=== PATIENT | male | born 1970 | race Caucasian/White ===

== ENCOUNTER 2020-05-29 07:30 | Outpatient (RCR) | payer OTHER, SELFPAY | END 2020-06-21 23:59 | disposition home or self-care (01) | LOC: SPT 07:30 | PROVIDERS: PCP Nurse Practitioner Family; Referring Provider Nurse Practitioner Family; Visit Provider Nurse Practitioner Family | DX: M54.5 Low back pain (principal) | CPT/HCPCS: 97110; 97162 ==

== ENCOUNTER → 2021-01-29 11:48 | Outpatient (BNVA) | payer OTHER, SELFPAY | PROVIDERS: PCP Nurse Practitioner Family; Visit Provider Nurse Practitioner Family | DX: Z20.822 Contact with and (suspected) exposure to COVID-19 (principal); J06.9 Acute upper respiratory infection, unspecified | CPT/HCPCS: 87635 ==

== ENCOUNTER 2021-07-01 08:17 | Outpatient (CLI) | payer OTHER, SELFPAY ==
--- NOTE | 2021-07-01 08:40 | XR_ITS ---
WS: [id number] XR lumbar spine 2-3V* [id number] REASON FOR EXAM: BACK PAIN FINDINGS: Mild rotatory scoliosis convex to the left on the AP view. Mild straightening of the normal lordosis of the lumbar spine on the lateral view. No significant vertebral body abnormality. Intervertebral disc spaces are well preserved. XR/XR lumbar spine 2-3V* [id number] IMPRESSION: No significant abnormality of the lumbar spine. No significant interval change is identified comparing to the previous study of 10/15/2019.
== END 2021-07-01 08:18 | disposition home or self-care (01) ==
PROVIDERS: PCP Nurse Practitioner Family; Visit Provider Electrodiagnostic Medicine
DX: M54.16 Radiculopathy, lumbar region (principal); M46.1 Sacroiliitis, not elsewhere classified; M54.32 Sciatica, left side
CPT/HCPCS: 72100

== ENCOUNTER 2022-06-01 06:56 | Day surgery (SDC) | payer OTHER, SELFPAY ==
[2022-05-30 09:36] VITALS: BMI 23.5
[2022-06-01 07:18] VITALS: BP 117/84; PULSE 84; RESP 18; TEMP 36.6; O2SAT 99
[2022-06-01] MEDS: sodium chloride 0.9% 1,000 ML 30 ML IV (07:23)
--- NOTE | 2022-06-01 07:32 | ANES.PREANE2 ---
Pre-Anesthetic Assessment Height/Weight: Height 1.7 m Weight 68.039 kg Temp Pulse Resp BP Pulse Ox O2 Del Method 97.8 F 84 18 117/84 99 06/01/22 07:18 06/01/22 07:18 06/01/22 07:18 06/01/22 07:18 06/01/22 07:18 06/01/22 07:18 Preop Diagnosis: screening Operation Date: 06/01/22 08:30 Proposed Procedures p Colonoscopy 18457,Z12.11(Not Applicable) - Zhen Snell DO Familial anesthetic complications: none Was Beta Criss taken within 24 hours: N/A Was Clonidine taken within 24 hours: N/A Last intake: Intake Last Liquid Date 05/31/22 Last Liquid Time 22:00 Last Solid Date 05/30/22 Last Solid Time 18:00 Social No alcohol and No tobacco Exam alert, oriented x 3, clear to auscultation bilaterally and regular rate & rhythm Airway Submandibular: within normal limits Cervical ROM: within normal limits Mallampati: Class II Dentition: chipped (upper back left side) and full Pulmonary Asthma (childhood seems to have resolved) CV/HEM None reported high BP years ago due to stress but off BP meds for 11 years now None reported Hepatic None reported GI None reported Metabolic Hyperlipidemia Musc/skel Lower Back Pain and Osteoarthritis/DJD Neuropsych None reported Anesthetic Plan ASA status: 2 Anesthesia: MAC Risk of > 500 ml blood loss (7ml/kg in children): No Medications/Allergies Home Medications Medication Instructions Recorded Confirmed Last Taken Type simvastatin 10 mg tablet 10 mg PO DAILY 01/29/21 05/30/22 05/30/22 History Allergies Allergy/AdvReac Type Severity Reaction Status Date / Time Penicillins Allergy unsure Verified 05/30/22 09:34 Current Medications Generic Name Dose Route Start Last Admin Trade Name Freq PRN Reason Stop Dose Admin Sodium Chloride 1,000 mls @ 30 mls/hr 06/01/22 07:15 06/01/22 07:23 Sodium Chloride 0.9% IV 06/02/22 07:14 30 mls/hr .Q24H MILENA Administration Data Anesthesia Cardiac Studies: No Data to Display
--- NOTE | 2022-06-01 08:43 | P.HP_ITS ---
Providers/Chief Complaint Primary Care Provider: Vinh Hutchison NP Chief Complaint: Z12.11 History of Present Illness Morris Ibrahim is a 51 year old male who is here for his first colon cancer screening. He denies any abdominal pain, nausea, emesis, diarrhea, constipation, hematochezia and/or melena. He denies any family history of colon cancer. Medications/Allergies Home Medications Medication Instructions Recorded Confirmed Last Taken Type simvastatin 10 mg tablet 10 mg PO DAILY 01/29/21 05/30/22 05/30/22 History Allergies Allergy/AdvReac Type Severity Reaction Status Date / Time Penicillins Allergy unsure Verified 05/30/22 09:34 Vitals/I&O/Wt Last Vital Signs Temp 97.8 F 06/01/22 07:18 Pulse 84 06/01/22 07:18 Resp 18 06/01/22 07:18 BP 117/84 06/01/22 07:18 Pulse Ox 99 06/01/22 07:18 O2 Del Method 06/01/22 07:18 Weight last 48 hrs Weight 150 lb A&P Assessment and plan (1) Colon cancer screening: Plan Colonoscopy The risks and benefits of the procedure, including bleeding, infection, intestinal perforation requiring surgery, missed lesion were explained to the patient. The patient is understanding of the risks and wishes to proceed. Attestations Medical Necessity Statement*: Home Coding Level of Care Code Acute Video Production Assistant for Chg Fwd Diagnoses Colon cancer screening Z12.11
[2022-06-01 09:08] VITALS: BP 106/57; PULSE 52; RESP 12; TEMP 36.1; O2SAT 100
--- NOTE | 2022-06-01 09:10 | ANE.PACU2 ---
Inpatient post-anesthesia follow up: Airway intact: Yes Vital signs: Temperature 97.8 F Pulse Rate 84 Respiratory Rate 18 Blood Pressure 117/84 Pulse Oximetry 99 Oxygen Delivery Me thod Room Air Oxygen Flow Rate Fraction of Inspir ed Oxygen Hydration adequate: Yes Nausea and vomiting: No Pain level: 1 Mental status: Baseline
[2022-06-01 09:25] VITALS: BP 108/48; PULSE 56; RESP 16; O2SAT 97
--- NOTE | 2022-06-01 13:33 | ANE.PACU2 ---
Inpatient post-anesthesia follow up: Airway intact: Yes Vital signs: Temperature 97 F Pulse Rate 56 Respiratory Rate 16 Blood Pressure 108/48 Pulse Oximetry 97 Oxygen Delivery Me thod Room Air Oxygen Flow Rate Fraction of Inspir ed Oxygen Hydration adequate: Yes Nausea and vomiting: No Pain level: 1 Mental status: Baseline
== END 2022-06-01 09:40 | disposition home or self-care (01) ==
PROVIDERS: PCP Nurse Practitioner Family; Visit Provider Surgery
PROC: 0DJD8ZZ Inspection of Lower Intestinal Tract, Via Natural or Artificial Opening Endoscopic (ICD-10-PCS; CPT 45378; principal; 2022-06-01 08:30)
DX: Z12.11 Encounter for screening for malignant neoplasm of colon (principal); E78.5 Hyperlipidemia, unspecified
CPT/HCPCS: 45385; 88305; J2704; J7030

== ENCOUNTER 2022-08-09 12:22 | Observation (INO) | payer OTHER, SELFPAY ==
[2022-08-09] VITALS (13 sets, daily range): BP systolic 109–149; BP diastolic 50–90; PULSE 54–68; RESP 15–18; TEMP 36.8; O2SAT 96–100; BMI 24.3
[2022-08-09] MEDS: morphine 4 mg/mL SDV 1 mL IVP ×2 (12:48→13:07)
[2022-08-09] MEDS: ondansetron 2 mg/ML SDV 2 mL 4 MG IVP (12:48)
[2022-08-09 13:05] LABS: Basophils % 0.2 %; Eosinophils % 0.2 %; Hematocrit 43.2 % (42.0-52.0); Hemoglobin 14.4 g/dL (11.7-16.6); Lymphocytes # 2.2 10^3/uL (0.8-4.8); Lymphocytes % 17.9 %; Mean Corpuscular HGB Conc 33.3 g/dL (30.0-36.0); Mean Corpuscular Hemoglobin 31.2 pg (28.0-34.0); Mean Corpuscular Volume 93.7 fl (80-94); Mean Platelet Volume 10.4 fL (7.4-10.4); Monocytes # 0.7 10^3/uL (0.2-0.9); Monocytes % 5.7 %; Neutrophils # 9.38 10^3/uL (1.8-7.7); Neutrophils % 75.7 %; Nucleated Red Blood Cells % 0 %; Platelet Count 258 10^3/cmm (130-400); Red Blood Count 4.61 10^6/uL (4.1-5.3); Red Cell Distribution Width 11.9 % (12.1-15.1); White Blood Count 12.4 10^3/uL (4.0-10.0)
[2022-08-09] MEDS: promethazine 25 mg/mL SDV 1 mL IM (13:14)
[2022-08-09 13:20] LABS: Alanine Aminotransferase 26 U/L (0-41); Albumin Level 4.5 g/dL (3.5-5.2); Alkaline Phosphatase 42 U/L (40-130); Aspartate Amino Transferase 19 U/L (0-40); Blood Urea Nitrogen 16 mg/dL (6-20); Calcium 9.6 mg/dL (8.5-10.5); Carbon Dioxide 26 mmol/L (22-29); Chloride 104 mmol/L (98-107); Globulin 2.6 g/dL (1.3-4.6); Glomerular Filtration Rate 78.8 mL/min (90-130); Glucose 147 mg/dL (65-115); Osmolality Calculated 300 mOsm/kg (285-295); Sodium 143 mmol/L (136-145); Total Bilirubin 0.5 mg/dL (0.15-1.2); Total Protein 7.1 g/dL (6.6-8.7)
--- NOTE | 2022-08-09 13:35 | CT_ITS ---
WS: [id number] CT scan of the abdomen and pelvis without Oral and IV contrast. Additional two-dimensional coronal an d sagittal reconstruction was performed. 08/09/2022 Clinical Data: flank pain Comparison: None. DLP: 386.[address] scans at [facility] use at least one of these dose optimization techniques: automated e xposure control; mA and/or kV adjustment per patient size (includes targeted exams where dose is matc hed to clinical indication); or iterative reconstruction. Findings: The lower lungs show no nodules, masses or effusions. The liver, gallbladder, spleen, adrenal glands and pancreas are normal. The right kidney shows no cysts, masses, hydronephrosis or renal calculi. The left kidney shows mild hydronephrosis but no intrarenal calculi. There is a proximal left 0.3 cm ureteral calculus. The abdominal aorta is normal in size. No appendicitis or diverticulitis is seen. The stomach, small bowel and colon are not remarkable. The bladder is unremarkable. No inguinal hernia is seen. The bones of the lower thorax, lumbar spine, pelvis, and hips are normal. CT/CT kidney stone [id number] Impression: Proximal left 0.3 cm ureteral calculus.
[2022-08-09] MEDS: HYDROmorphone 1 mg/mL INJ 1 mL 0.5 MG IVP ×2 (13:41→15:09)
--- NOTE | 2022-08-09 14:08 | ED_ITS ---
HPI - Male Genitourinary General: Chief complaint: Abdominal Pain Stated complaint: left low back/side pain Time Seen by Provider: 08/09/22 12:25 Source: patient Mode of arrival: ambulatory History of Present Illness: 52-year-old male presents emergency room with left flank pain. He said pain intermittently been really mild the last couple of days suddenly this morning began to have severe pain that he rates as 10 out of 10. Patient is extremely uncomfortable and severe pain on arrival here. He noticed some dark urine associated with the intermittent flank pain couple of days ago but has not seen any jose hematuria no history of nephrolithiasis. Onset (ago): day(s) Duration: progressively worsening Location: left flank Radiation: left inguinal region Severity: severe Quality: sharp Relieving factors: none Exacerbating factors: none Associated symptoms: Reports nausea; Deny discharge, dysuria, fevers/chills, hematuria, rash, swelling, urinary incontinence, urinary retention, mass or vomiting Review of Systems Const: Denies: fever(s), chills, body aches, change in appetite, fatigue or malaise ENMT: Denies: throat pain, ear or mastoid pain, nasal discharge or nasal congestion Card: Denies: chest pain, edema, dyspnea on exertion or orthopnea Resp: Denies: dyspnea, productive cough or non-productive cough GI: Reports: nausea; Denies: vomiting : Denies: dysuria, urinary incontinence or hematuria Skin/Breast: Denies: rash or pruritus [facility] ED PFSH: Medical History (Updated 08/10/22 @ 06:02 by Malachi Hernandez DO) Chronic low back pain High cholesterol Tubular adenoma of colon Surgical History (Updated 08/09/22 @ 18:05 by Kev Gaviria MD) Status post colonoscopy Social History Smoking and tobacco status: never smoked Alcohol intake: never Physical Exam Const: COMMON NORMALS: no acute distress GENERAL APPEARANCE: cooperative and comfortable ORIENTATION/CONSCIOUSNESS: Yes awake, Yes oriented to person, Yes oriented to place and Yes oriented to time HENMT: COMMON NORMALS: normocephalic, atraumatic and hearing grossly normal bilaterally HEAD & SCALP: normocephalic and atraumatic Resp: COMMON NORMALS: normal respiratory effort, No retractions, No use of accessory muscles and clear to auscultation bilaterally AUSCULTATION: clear to auscultation bilaterally Cardio: COMMON NORMALS: regular rate, regular rhythm and No murmurs present (Cardio) RATE: regular rate RHYTHM: regular rhythm GI: COMMON NORMALS: Soft to palpation and No hepatosplenomegaly present AUSCULTATION: Yes normoactive bowel sounds PALPATION: Yes Soft to palpation, No Tenderness to palpation present (GI), No Guarding due to palpation present (GI) and Yes No hepatosplenomegaly present : BLADDER/KIDNEY EXAM: Yes CVA tenderness on the left Back/Pelvis: GENERAL BACK: Yes CVA tenderness Extremity: COMMON NORMALS: normal to inspection, capillary refill normal, no clubbing, cyanosis or edema, no calf tenderness and no pedal edema Neuro: SENSORIUM/ORIENTATION: Yes oriented to person, Yes oriented to place and Yes oriented to time Skin: COMMON NORMALS: no rashes or lesions noted GENERAL SKIN EXAM: no rashes or lesions noted Course Vital Signs: Vital signs: Vital Signs Temperature 97.9 F 08/10/22 04:00 Pulse Rate 53 L 08/10/22 04:00 Respiratory Rate 16 08/10/22 04:00 Blood Pressure 96/56 08/10/22 04:00 Pulse Oximetry 96 08/10/22 04:00 Oxygen Delivery Me thod 08/10/22 04:00 MDM - Male Medical Decision Making 3 mm left nephrolithiasis mid ureter. Patient's pain very difficult to control. Discussed with Dr. Gaviria he recommended going ahead and giving Toradol at this point. Patient has received 8 mg of morphine and 3 mg Dilaudid pain is still minimally controlled placed on observation for Dr. Gaviria. He has been to the emergency room and seen the patient Medical Records I reviewed the patient's medical records. Lab Data I reviewed the patient's lab results. 08/09/22 12:42 08/09/22 12:42 Radiology Impressions Abdomen/Pelvis CT 08/09/22 13:35 Impression: Proximal left 0.3 cm ureteral calculus. Laboratory Results WBC 12.4 10^3/uL (4.0-10.0) H 08/09/22 12:42 RBC 4.61 10^6/uL (4.1-5.3) 08/09/22 12:42 Hgb 14.4 g/dL (11.7-16.6) 08/09/22 12:42 Hct 43.2 % (42.0-52.0) 08/09/22 12:42 MCV 93.7 fl (80-94) 08/09/22 12:42 MCH 31.2 pg (28.0-34.0) 08/09/22 12:42 MCHC 33.3 g/dL (30.0-36.0) 08/09/22 12:42 RDW 11.9 % (12.1-15.1) L 08/09/22 12:42 Plt Count 258 10^3/cmm (130-400) 08/09/22 12:42 MPV 10.4 fL (7.4-10.4) 08/09/22 12:42 Neut % (Auto) 75.7 % 08/09/22 12:42 Lymph % (Auto) 17.9 % 08/09/22 12:42 [place] % (Auto) 5.7 % 08/09/22 12:42 Eos % (Auto) 0.2 % 08/09/22 12:42 Baso % (Auto) 0.2 % 08/09/22 12:42 Neut # (Auto) 9.38 10^3/uL (1.8-7.7) H 08/09/22 12:42 Lymph # (Auto) 2.2 10^3/uL (0.8-4.8) 08/09/22 12:42 [place] # (Auto) 0.7 10^3/uL (0.2-0.9) 08/09/22 12:42 Eos # (Auto) 0.0 10^3/uL (0.0-0.8) 08/09/22 12:42 Baso # (Auto) 0.0 10^3/uL (0.0-0.1) 08/09/22 12:42 Nucleated RBC % (auto) 0 % 08/09/22 12:42 Nucleated RBCs # 0.0 /100WBC 08/09/22 12:42 Sodium 143 mmol/L (136-145) 08/09/22 12:42 Potassium 4.0 mmol/L (3.5-5.1) 08/09/22 12:42 Chloride 104 mmol/L (98-107) 08/09/22 12:42 Carbon Dioxide 26 mmol/L (22-29) 08/09/22 12:42 Anion Gap 17.0 (5-19) 08/09/22 12:42 BUN 16 mg/dL (6-20) 08/09/22 12:42 Creatinine 1.0 mg/dL (0.7-1.2) 08/09/22 12:42 GFR Calculation 78.8 mL/min (90-130) L 08/09/22 12:42 Glucose 147 mg/dL (65-115) H 08/09/22 12:42 Calculated Osmolality 300 mOsm/kg (285-295) H 08/09/22 12:42 Calcium 9.6 mg/dL (8.5-10.5) 08/09/22 12:42 Total Bilirubin 0.5 mg/dL (0.15-1.2) 08/09/22 12:42 AST 19 U/L (0-40) 08/09/22 12:42 ALT 26 U/L (0-41) 08/09/22 12:42 Alkaline Phosphatase 42 U/L (40-130) 08/09/22 12:42 Total Protein 7.1 g/dL (6.6-8.7) 08/09/22 12:42 Albumin 4.5 g/dL (3.5-5.2) 08/09/22 12:42 Globulin 2.6 g/dL (1.3-4.6) 08/09/22 12:42 Urine Color Dark yellow (Yellow) 08/09/22 15:27 Urine Appearance Cloudy (CLEAR) A 08/09/22 15:27 Urine pH 6 (5-7) 08/09/22 15:27 Ur Specific [place] 1.025 (1.005-1.030) 08/09/22 15:27 Urine Protein Trace (Negative) 08/09/22 15:27 Urine Glucose (UA) Norm (Normal) 08/09/22 15:27 Urine Ketones 1+ (Negative) H 08/09/22 15:27 Urine Blood 3+ (Negative) H 08/09/22 15:27 Urine Nitrate Negative (Negative) 08/09/22 15:27 Urine Bilirubin Neg (Negative) 08/09/22 15:27 Urine Urobilinogen Neg mg/dL (Negative) 08/09/22 15:27 Ur Leukocyte Esterase Negative (Negative) 08/09/22 15:27 Urine RBC 50-80 /hpf (0-2) H 08/09/22 15:27 Urine WBC None /hpf (0-5) 08/09/22 15:27 Ur Squamous Epith Cells None /hpf (0-5) 08/09/22 15:27 Amorphous Sediment Not Reportable 08/09/22 15:27 Urine Bacteria Trace /hpf (NONE) 08/09/22 15:27 Discharge Plan Discharge Patient Disposition: Admitted As Inpatient Admit Provider: Kev Gaviria Clinical Impression: Left ureteral calculus, Hydronephrosis, left Condition: Stable Coding Level of Care Code ED Ict Sales Representative for Mirta Luciano
[2022-08-09 16:15] LABS: Blood Urine 3+ (Negative); Glucose Urine UA Norm (Normal); Ketones Urine 1+ (Negative); Protein Urine Trace (Negative); Specific Gravity, Urine 1.025 (1.005-1.030); Urine Appearance Cloudy (CLEAR); Urine Color Dark Yellow (Yellow); pH Urine 6 (5-7)
[2022-08-09 16:16] LABS: Add Urine Culture? Yes; Add Urine Microscopic? YES; Bacteria Urine TRACE /hpf; Bilirubin Urine Neg (Negative); Leukocyte Esterase Urine Negative (Negative); Nitrate Urine Negative (Negative); RBC Urine 50-80 /hpf (0-2); Urobilinogen Urine Neg (Negative)
[2022-08-09] MEDS: ketorolac 30 mg/mL INJ IVP (16:32)
--- NOTE | 2022-08-09 17:11 | P.HP_ITS ---
Providers/Chief Complaint Admitting Physician: Everette Primary Care Provider: Shannon Patrick Chief Complaint: Left ureteral stone History of Present Illness Morris is a 52 year old male admitted through ED for complaint of refractory, severe LEFT ureteral colic. CT revealed a 6mm obstructing midureteral stone. Workup: * WBC: 12.4 * Cr: 1.0 * LFTs: nl Aggressive pain treatment failed to adequately control the pain enough for patient to be managed as an outpatient. Admitted for pain control and further eval and treatment. KUB in AM. Review of Systems Const: Denies: fever(s) or chills Card: Denies: chest pain or palpitations Resp: Denies: dyspnea or productive cough GI: Reports: abdominal pain and nausea; Denies: vomiting or change in bowel habits : Reports: flank pain Musc: Reports: back pain (Some low chronic back pain) Skin/Breast: Denies: jaundice Neuro: Denies: confusion or Slurred speech present Psych: Denies: anxiety or depression Endo: Denies: flushing Bruce/Lymph: Denies: easy bruising or easy bleeding All/Imm: Denies: urticaria or acute wheezing Medications/Allergies Home Medications Medication Instructions Recorded Confirmed Last Taken Type simvastatin 10 mg tablet 10 mg PO BEDTIME 01/29/21 08/09/22 05/30/22 History cetirizine 10 mg tablet (Zyrtec) 10 mg PO BEDTIME 08/09/22 08/09/22 Unknown History multivitamin 1 tab PO QAM 08/09/22 08/09/22 Unknown History tramadol 50 mg tablet 50 mg PO Q8H PRN Back Pain 08/09/22 08/09/22 Unknown History Allergies Allergy/AdvReac Type Severity Reaction Status Date / Time ciprofloxacin [From Cipro] Allergy Unknown Verified 08/09/22 12:29 Penicillins Allergy unsure Verified 08/09/22 12:29 PFSH Acute PFSH: Medical History (Updated 08/09/22 @ 18:05 by Kev Gaviria MD) Chronic low back pain High cholesterol Tubular adenoma of colon Surgical History (Updated 08/09/22 @ 18:05 by Kev Gaviria MD) Status post colonoscopy Social History Smoking and tobacco status: never smoked Alcohol intake: never Vitals/I&O/Wt Last Vital Signs Temp 98.3 F 08/09/22 12:24 Pulse 60 08/09/22 16:35 Resp 16 08/09/22 14:37 BP 144/90 08/09/22 16:35 Pulse Ox 96 08/09/22 16:35 O2 Del Method 08/09/22 16:35 Weight last 48 hrs Weight 155 lb Physical Exam Const: COMMON NORMALS: no acute distress (Much improved over how he was very short time before), alert and well nourished GENERAL APPEARANCE: well kempt and well developed ORIENTATION/CONSCIOUSNESS: not confused HENMT: COMMON NORMALS: normocephalic HEAD & SCALP: normal to inspection and normocephalic Eye: COMMON NORMALS: conjunctivae normal and no scleral icterus CONJUNCTIVA: Yes conjunctivae normal Neck/C-Spine: GENERAL: Yes normal visual inspection Resp: COMMON NORMALS: normal respiratory effort EFFORT & INSPECTION: Yes able to speak in complete sentences, No labored and No Actively coughing Cardio: COMMON NORMALS: negative for regular rate and negative for regular rhythm GI: OTHER: Soft Extremity: COMMON NORMALS: no clubbing, cyanosis or edema OTHER: Normal range of motion Neuro: COMMON NORMALS: no focal motor deficits SENSORIUM/ORIENTATION: Yes alert Psych: COMMON NORMALS: mental status grossly normal APPEARANCE: Yes grossly normal and Yes well kempt ATTITUDE: Yes calm and Yes engaged Skin: COMMON NORMALS: no rashes or lesions noted and no jaundice GENERAL SKIN EXAM: no rashes or lesions noted Data 08/09/22 12:42 08/09/22 12:42 A&P Assessment and plan (1) Left ureteral calculus: 6 mm LEFT ureteral stone with refractory pain. Observe overnight. Serial KUBs. Intervention versus further conservative management on outpatient basis depending upon how he does. (2) Hydronephrosis, left: Secondary to mid ureteral stone on the left. Plan see above. Attestations Medical Necessity Statement*: Despite high doses of narcotics, could not get his pain well enough controlled to be discharged. Coding Level of Care Code Acute Code for [facility] Fwd Diagnoses Left ureteral calculus N20.1 Hydronephrosis, left N13.30
[2022-08-09] MEDS: sodium chloride 0.9% 1,000 ML 125 ML IV (20:05)
[2022-08-09] MEDS: ketorolac 30 mg/mL INJ 15 MG IVP (20:06)
[2022-08-09] MEDS: HYDROmorphone 1 mg/mL INJ 1 mL IVP (20:06)
[2022-08-09] MEDS: tamsulosin 0.4 mg Capsule PO (20:07)
[2022-08-10] VITALS: BP 110/63; PULSE 53; RESP 16; TEMP 36.8; O2SAT 95
[2022-08-10 04:00] VITALS: BP 96/56; PULSE 53; RESP 16; TEMP 36.6; O2SAT 96
[2022-08-10] MEDS: sodium chloride 0.9% 1,000 ML 125 ML IV (04:10)
--- NOTE | 2022-08-10 06:00 | XR_ITS ---
WS: [id number] EXAMINATION: XR KUB [id number] REASON FOR EXAM: F/U LEFT ureteral calculus diagnosed 08/09 COMPARISON: None available. ORDER DATE: 08/10/2022 6:20 AM FINDINGS: There is a nonspecific colonic gas pattern with scattered fecal content and gas. There is no sign of significant small bowel dilation. There is a small calcification superimposing the left transverse p rocess of L3 and XR/XR KUB [id number] IMPRESSION: Possible upper left ureteral calculus.
--- NOTE | 2022-08-10 06:11 | PC.NURSE ---
Contacted radiology regarding incomplete orders for KUB x 3 attempts. Spoke w/Brady who states she will talk to freya Alvarado to see if he already got it.
--- NOTE | 2022-08-10 06:51 | PC.NURSE ---
Dr. Gaviria here to speak w/pt regarding status of kidney stone and pt's wishes regarding stent placement or going home to try to pass the stone. Pt to discharge home this am.
--- NOTE | 2022-08-10 07:06 | PM.DCS ---
Discharge Providers Date of Admission: 08/09/22 19:04 Date of Discharge: August 10, 2022 Attending Provider at Admission: Kev Gaviria MD Attending Provider at Discharge: Kev Gaviria MD Primary Care Provider: Shannon Patrick Diagnoses at Discharge Discharge Diagnosis (1) Left ureteral calculus: Status: Acute (2) Hydronephrosis, left: Status: Acute Reason for Visit Reason for Visit: Left ureteral stone Brief History: Admitted through the emergency department for refractory pain associated with a 4 x 6 mm left mid ureteral stone with obstruction. No evidence of infection. Despite aggressive attempts at management of the pain in the emergency department it was not adequate for discharge home on oral medication and for that reason he was admitted overnight for further observation possible intervention. Hospital Course Hospital Course He did very well overnight. His pain did not come back in the ferocity that it had been experienced in the emergency department. He was discharged on the morning of hospital day #2. KUB showed the stone had not progressed. They wanted to see if he could give it a chance to pass spontaneously. Discharged in stable condition Physical Exam Narrative: Alert oriented no acute distress. Unlabored respiration with no audible wheezes Good range of motion of extremities Back to baseline. Discharge Data Studies Completed and Pending Completed Studies During Hospitalization Category Date Time Status [place] kidney stone [id number] Stat Cat Scan 08/09/22 13:35 Completed Pending at discharge Category Date Time Status XR KUB [id number] Routine Exams 08/10/22 06:00 Taken Urine Culture Stat Lab 08/09/22 15:27 Received Radiology Impressions Abdomen/Pelvis CT 08/09/22 13:35 Impression: Proximal left 0.3 cm ureteral calculus. Laboratory Results WBC 12.4 10^3/uL (4.0-10.0) H 08/09/22 12:42 RBC 4.61 10^6/uL (4.1-5.3) 08/09/22 12:42 Hgb 14.4 g/dL (11.7-16.6) 08/09/22 12:42 Hct 43.2 % (42.0-52.0) 08/09/22 12:42 MCV 93.7 fl (80-94) 08/09/22 12:42 MCH 31.2 pg (28.0-34.0) 08/09/22 12:42 MCHC 33.3 g/dL (30.0-36.0) 08/09/22 12:42 RDW 11.9 % (12.1-15.1) L 08/09/22 12:42 Plt Count 258 10^3/cmm (130-400) 08/09/22 12:42 MPV 10.4 fL (7.4-10.4) 08/09/22 12:42 Neut % (Auto) 75.7 % 08/09/22 12:42 Lymph % (Auto) 17.9 % 08/09/22 12:42 [place] % (Auto) 5.7 % 08/09/22 12:42 Eos % (Auto) 0.2 % 08/09/22 12:42 Baso % (Auto) 0.2 % 08/09/22 12:42 Neut # (Auto) 9.38 10^3/uL (1.8-7.7) H 08/09/22 12:42 Lymph # (Auto) 2.2 10^3/uL (0.8-4.8) 08/09/22 12:42 [place] # (Auto) 0.7 10^3/uL (0.2-0.9) 08/09/22 12:42 Eos # (Auto) 0.0 10^3/uL (0.0-0.8) 08/09/22 12:42 Baso # (Auto) 0.0 10^3/uL (0.0-0.1) 08/09/22 12:42 Nucleated RBC % (auto) 0 % 08/09/22 12:42 Nucleated RBCs # 0.0 /100WBC 08/09/22 12:42 Sodium 143 mmol/L (136-145) 08/09/22 12:42 Potassium 4.0 mmol/L (3.5-5.1) 08/09/22 12:42 Chloride 104 mmol/L (98-107) 08/09/22 12:42 Carbon Dioxide 26 mmol/L (22-29) 08/09/22 12:42 Anion Gap 17.0 (5-19) 08/09/22 12:42 BUN 16 mg/dL (6-20) 08/09/22 12:42 Creatinine 1.0 mg/dL (0.7-1.2) 08/09/22 12:42 GFR Calculation 78.8 mL/min (90-130) L 08/09/22 12:42 Glucose 147 mg/dL (65-115) H 08/09/22 12:42 Calculated Osmolality 300 mOsm/kg (285-295) H 08/09/22 12:42 Calcium 9.6 mg/dL (8.5-10.5) 08/09/22 12:42 Total Bilirubin 0.5 mg/dL (0.15-1.2) 08/09/22 12:42 AST 19 U/L (0-40) 08/09/22 12:42 ALT 26 U/L (0-41) 08/09/22 12:42 Alkaline Phosphatase 42 U/L (40-130) 08/09/22 12:42 Total Protein 7.1 g/dL (6.6-8.7) 08/09/22 12:42 Albumin 4.5 g/dL (3.5-5.2) 08/09/22 12:42 Globulin 2.6 g/dL (1.3-4.6) 08/09/22 12:42 Urine Color Dark yellow (Yellow) 08/09/22 15:27 Urine Appearance Cloudy (CLEAR) A 08/09/22 15:27 Urine pH 6 (5-7) 08/09/22 15:27 Ur Specific [place] 1.025 (1.005-1.030) 08/09/22 15:27 Urine Protein Trace (Negative) 08/09/22 15:27 Urine Glucose (UA) Norm (Normal) 08/09/22 15:27 Urine Ketones 1+ (Negative) H 08/09/22 15:27 Urine Blood 3+ (Negative) H 08/09/22 15:27 Urine Nitrate Negative (Negative) 08/09/22 15:27 Urine Bilirubin Neg (Negative) 08/09/22 15:27 Urine Urobilinogen Neg mg/dL (Negative) 08/09/22 15:27 Ur Leukocyte Esterase Negative (Negative) 08/09/22 15:27 Urine RBC 50-80 /hpf (0-2) H 08/09/22 15:27 Urine WBC None /hpf (0-5) 08/09/22 15:27 Ur Squamous Epith Cells None /hpf (0-5) 08/09/22 15:27 Amorphous Sediment Not Reportable 08/09/22 15:27 Urine Bacteria Trace /hpf (NONE) 08/09/22 15:27 Vitals Last Vital Signs Temp 97.9 F 08/10/22 04:00 Pulse 53 L 08/10/22 04:00 Resp 16 08/10/22 04:00 BP 96/56 08/10/22 04:00 Pulse Ox 96 08/10/22 04:00 O2 Del Method 08/10/22 04:00 Discharge Plan Discharge Patient Disposition: Home Condition: Stable Prescriptions: New tamsulosin 0.4 mg capsule 0.4 mg PO DAILY Qty: 30 5RF Percocet 5-325 mg tablet 1 - 2 tab PO Q6H Qty: 18 0RF ondansetron HCl 4 mg tablet 4 mg PO Q8H 4 Days Qty: 10 1RF Continued simvastatin 10 mg tablet 10 mg PO BEDTIME multivitamin Tablet 1 tab PO QAM Zyrtec 10 mg Tablet 10 mg PO BEDTIME tramadol 50 mg Tablet 50 mg PO Q8H PRN (Reason: Back Pain) Discharge Orders: Discharge Order (Routine); Ordered 08/10/22 Ordered By: Kev Gaviria Referrals: Shannon Patrick FNP [Primary Care Provider] - Kev Gaviria MD [Physician] - 1 week (KUB first) Discharge Diet: Regular Discharge Activity: Increase activity as tolerated Patient Instructions: Opioid Safety Activity Restrictions/Additional Instructions: 1. Please give us a call tomorrow at [phone] let us know how you are doing 2. We have the opportunity for shockwave lithotripsy to the stone on Monday the . That is certainly not the only option. Hopefully you can pass the stone. We would need to make some plans for that though as soon as possible if you think that you are leaning more toward that treatment. 3. We will plan for follow-up in about a week with an x-ray to see if there is any progression of the stone 4. Please strain all voids 5. Use your pain medicine as needed. Discharge Attestations Time Spent in Discharge Care*: less than 30 min Quality Metrics Clinical Quality Measures [ No reported AMI, CVA or VTE this stay] Coding Level of Care Code Acute Code for [facility] Fwd Diagnoses Left ureteral calculus N20.1 Hydronephrosis, left N13.30
[2022-08-10 07:48] VITALS: BP 118/71; PULSE 56; RESP 15; TEMP 36.3; O2SAT 96
[2022-08-10] MEDS: ketorolac 30 mg/mL INJ 15 MG IVP (07:53)
== END 2022-08-10 09:22 | disposition home or self-care (01) ==
LOC: ER 18:56 → MEDSURG 19:05
PROVIDERS: Admitting Provider Urology; Emergency Provider Family Medicine; PCP Nurse Practitioner Family; Visit Provider Urology
DX: N20.1 Calculus of ureter (principal); N13.30 Unspecified hydronephrosis
CPT/HCPCS: 74018; 74176; 80053; 81001; 85025; 87086; 96372; 96374; 96375; 96376; 99285; G0378; J1170; J1885; J2270; J2405; J2550; J7030

== ENCOUNTER 2022-08-10 21:51 | Observation (INO) | payer OTHER, SELFPAY ==
[2022-08-10] VITALS (7 sets, daily range): BP systolic 126–169; BP diastolic 71–89; PULSE 64–70; RESP 16–18; TEMP 36.8–37.4; O2SAT 91–100; BMI 24.3
--- NOTE | 2022-08-10 22:02 | XRR_ITS ---
PROCEDURE INFORMATION: Exam: XR Abdomen Exam date and time: 08/10/2022 10:15 PM Age: 52 years old Clinical indication: Other: Left flank pain radiating towards RT flank; Additional info: Kidney stone TECHNIQUE: Imaging protocol: Radiologic exam of the abdomen. Views: Frontal supine view of the abdomen. 1 View. COMPARISON: CT kidney stone [id number] 08/09/2022 1:55 PM FINDINGS: Gastrointestinal tract: Moderate colonic stool burden. No bowel obstruction or pneumatosis. Organs: Assessment of urinary calculus disease is limited due to obscuration by abdominal content. If there is a strong clinical concern, additional imaging such as CT may also be considered. Most recent CT exam demonstrated proximal left ureteral calculus measuring 3 mm which may be obscured on this exam. Bones/joints: Slightly prominent cortical bumps at the superolateral femoral head neck junctions, right greater than left. Findings may be related to chronic femoroacetabular impingement and clinical correlation is needed. Other findings: Single supine views submitted. The most superior aspect is not included. XR/XR KUB [id number] IMPRESSION: No acute findings. Other nonacute findings as above. Somewhat limited assessment of urinary tract calculi due to stool material.
--- NOTE | 2022-08-10 22:03 | ED_ITS ---
HPI - Back Pain/Injury General: Chief Complaint: Back Pain/Injury Stated Complaint: left flank pain Time Seen by Provider: 08/10/22 21:53 Source: patient Mode of arrival: ambulatory Limitations: no limitations History of Present Illness: 52-year-old male who was admitted yesterday for a kidney stone he was originally going to have a stent placed beside he want to try to pass it on his own was discharged he states he had worsening pain tonight states the pain is sharp in nature rates it a 9 out of 10 at this time he wants to be readmitted he has had some nausea denies any vomiting. Associated symptoms: Reports nausea; Deny chills or fever(s) Review of Systems Const: Denies: fever(s), chills, body aches or change in appetite Eyes: Denies: blurry vision or eye discomfort ENMT: Denies: throat pain or dental pain Card: Denies: chest pain Resp: Denies: dyspnea GI: Reports: nausea : Reports: flank pain Musc: Denies: neck pain or back pain Skin/Breast: Denies: rash Neuro: Denies: headache(s) Psych: Denies: depression Bruce/Lymph: Denies: easy bruising All/Imm: Denies: urticaria PFSH ED PFSH: Medical History Chronic low back pain High cholesterol Tubular adenoma of colon Surgical History (Updated 08/09/22 @ 18:05 by Kev Gaviria MD) Status post colonoscopy Social History Smoking and tobacco status: never smoked Alcohol intake: never Physical Exam Const: COMMON NORMALS: patient oriented x3 HENMT: COMMON NORMALS: normocephalic and atraumatic HEAD & SCALP: normocephalic and atraumatic Eye: COMMON NORMALS: Equal, round and reactive pupils present and EOMs intact bilaterally PUPIL: Yes Equal, round and reactive pupils present Neck/C-Spine: COMMON NORMALS: full ROM and supple Chest: COMMONS NORMALS: normal inspection of the chest and normal palpation of entire chest wall Resp: COMMON NORMALS: normal respiratory effort, No retractions, No use of accessory muscles and clear to auscultation bilaterally AUSCULTATION: clear to auscultation bilaterally Cardio: COMMON NORMALS: regular rate, regular rhythm and No murmurs present (Cardio) RATE: regular rate RHYTHM: regular rhythm GI: COMMON NORMALS: Normal to inspection, nondistended, normoactive bowel sounds present, Soft to palpation, non-tender and no masses PALPATION: Yes Soft to palpation Extremity: COMMON NORMALS: normal to inspection and full ROM Neuro: COMMON NORMALS: patient oriented x3, moves all extremities and no focal motor deficits Psych: COMMON NORMALS: mental status grossly normal, Normal thought process present and cooperative THOUGHT PROCESS: Normal thought process present Skin: COMMON NORMALS: no rashes or lesions noted and no wounds GENERAL SKIN EXAM: no rashes or lesions noted Course Vital Signs: Vital signs: Vital Signs Temperature 98.2 F 08/10/22 21:54 Pulse Rate 65 08/10/22 22:24 Respiratory Rate 16 08/10/22 22:24 Blood Pressure 169/89 08/10/22 22:24 Pulse Oximetry 100 08/10/22 22:24 Oxygen Delivery Me thod 08/10/22 21:54 MDM - Back Pain/Injury Medical Decision Making Patient presents here with flank pain for likely kidney stone on spoke to Dr. Gaviria urology will admit at this time he has been stable here. Labs 08/10/22 22:22 08/10/22 22:22 Laboratory Results WBC 11.6 10^3/uL (4.0-10.0) H 08/10/22 22:22 RBC 4.44 10^6/uL (4.1-5.3) 08/10/22 22:22 Hgb 13.9 g/dL (11.7-16.6) 08/10/22 22: Hct 41.1 % (42.0-52.0) L 08/10/22 22: MCV 92.6 fl (80-94) 08/10/22 22: MCH 31.3 pg (28.0-34.0) 08/10/22 22: MCHC 33.8 g/dL (30.0-36.0) 08/10/22 22: RDW 11.8 % (12.1-15.1) L 08/10/22 22: Plt Count 202 10^3/cmm (130-400) 08/10/22 22:22 MPV 9.9 fL (7.4-10.4) 08/10/22 22: Neut % (Auto) 67.3 % 08/10/22 22: Lymph % (Auto) 22.6 % 08/10/22 22: [place] % (Auto) 8.5 % 08/10/22 22: Eos % (Auto) 1.2 % 08/10/22 22: Baso % (Auto) 0.2 % 08/10/22 22: Neut # (Auto) 7.81 10^3/uL (1.8-7.7) H 08/10/22 22: Lymph # (Auto) 2.6 10^3/uL (0.8-4.8) 08/10/22 22: [place] # (Auto) 1.0 10^3/uL (0.2-0.9) H 08/10/22 22: Eos # (Auto) 0.1 10^3/uL (0.0-0.8) 08/10/22 22: Baso # (Auto) 0.0 10^3/uL (0.0-0.1) 08/10/22 22: Nucleated RBC % (auto) 0 % 08/10/22: Nucleated RBCs # 0.0 /100WBC 08/10/22 22: Sodium 146 mmol/L (136-145) H 08/10/22 22: Potassium 3.8 mmol/L (3.5-5.1) 08/10/22 22: Chloride 107 mmol/L (98-107) 08/10/22 22: Carbon Dioxide 29 mmol/L (22-29) 08/10/22 22: Anion Gap 13.8 (5-19) 08/10/22 22: BUN 16 mg/dL (6-20) 08/10/22 22: Creatinine 1.6 mg/dL (0.7-1.2) H 08/10/22 22: GFR Calculation 45.8 mL/min (90-130) L 08/10/22 22: Glucose 98 mg/dL (65-115) 08/10/22 22: Calculated Osmolality 303 mOsm/kg (285-295) H 08/10/22 22: Calcium 9.1 mg/dL (8.5-10.5) 08/10/22 22: Total Bilirubin 0.6 mg/dL (0.15-1.2) 08/10/22 22: AST 32 U/L (0-40) 08/10/22 22: ALT 23 U/L (0-41) 08/10/22 22: Alkaline Phosphatase 45 U/L (40-130) 08/10/22 22: Total Protein 6.5 g/dL (6.6-8.7) L 08/10/22 22: Albumin 4.1 g/dL (3.5-5.2) 08/10/22 22: Globulin 2.4 g/dL (1.3-4.6) 08/10/22: Lipase 26 U/L (13-60) 08/10/22 22:22 Discharge Plan Discharge Patient Disposition: Admitted As Inpatient Admit Provider: Kev Gaviria Clinical Impression: Left ureteral calculus Condition: Stable Coding Level of Care Code ED Shellfish Manager for Mirta Luciano
[2022-08-10] MEDS: HYDROmorphone 1 mg/mL INJ 1 mL 0.5 MG IVP (22:21)
[2022-08-10] MEDS: ondansetron 2 mg/ML SDV 2 mL 4 MG IVP (22:21)
[2022-08-10 22:28] LABS: Basophils % 0.2 %; Eosinophils # 0.1 10^3/uL (0.0-0.8); Eosinophils % 1.2 %; Hematocrit 41.1 % (42.0-52.0); Hemoglobin 13.9 g/dL (11.7-16.6); Lymphocytes # 2.6 10^3/uL (0.8-4.8); Lymphocytes % 22.6 %; Mean Corpuscular HGB Conc 33.8 g/dL (30.0-36.0); Mean Corpuscular Hemoglobin 31.3 pg (28.0-34.0); Mean Corpuscular Volume 92.6 fl (80-94); Mean Platelet Volume 9.9 fL (7.4-10.4); Monocytes % 8.5 %; Neutrophils # 7.81 10^3/uL (1.8-7.7); Neutrophils % 67.3 %; Nucleated Red Blood Cells % 0 %; Platelet Count 202 10^3/cmm (130-400); Red Blood Count 4.44 10^6/uL (4.1-5.3); Red Cell Distribution Width 11.8 % (12.1-15.1); White Blood Count 11.6 10^3/uL (4.0-10.0)
[2022-08-10 22:46] LABS: Alanine Aminotransferase 23 U/L (0-41); Albumin Level 4.1 g/dL (3.5-5.2); Alkaline Phosphatase 45 U/L (40-130); Anion Gap 13.8 (5-19); Aspartate Amino Transferase 32 U/L (0-40); Blood Urea Nitrogen 16 mg/dL (6-20); Calcium 9.1 mg/dL (8.5-10.5); Carbon Dioxide 29 mmol/L (22-29); Chloride 107 mmol/L (98-107); Globulin 2.4 g/dL (1.3-4.6); Glomerular Filtration Rate 45.8 mL/min (90-130); Glucose 98 mg/dL (65-115); Lipase 26 U/L (13-60); Osmolality Calculated 303 mOsm/kg (285-295); Potassium 3.8 mmol/L (3.5-5.1); Sodium 146 mmol/L (136-145); Total Bilirubin 0.6 mg/dL (0.15-1.2); Total Protein 6.5 g/dL (6.6-8.7)
[2022-08-10] MEDS: LORazepam 2 mg/mL INJ 1 mL 1 MG IVP (23:01)
[2022-08-10] MEDS: sodium chloride 0.9% 1,000 ML 999 ML IV (23:01)
[2022-08-10] MEDS: morphine 4 mg/mL SDV 1 mL IVP ×2 (23:01→23:37)
[2022-08-10 23:04] LABS: Urine Appearance SL Hazy (CLEAR); Urine Color Yellow (Yellow)
[2022-08-10 23:05] LABS: Add Urine Culture? Yes; Add Urine Microscopic? YES; Bilirubin Urine Neg (Negative); Blood Urine 3+ (Negative); Glucose Urine UA Norm (Normal); Ketones Urine Negative (Negative); Leukocyte Esterase Urine Negative (Negative); Nitrate Urine Negative (Negative); Protein Urine Neg (Negative); RBC Urine 25-40 /hpf (0-2); Specific Gravity, Urine 1.025 (1.005-1.030); Urobilinogen Urine Neg (Negative); pH Urine 5 (5-7)
[2022-08-10] MEDS: sodium chloride 0.9% 1,000 ML 100 ML IV (23:38)
[2022-08-11] VITALS (20 sets, daily range): BP systolic 112–147; BP diastolic 63–87; PULSE 50–75; RESP 12–22; TEMP 36.7–37.2; O2SAT 92–98
[2022-08-11] MEDS: morphine 4 mg/mL SDV 1 mL IVP ×3 (03:06→16:38)
[2022-08-11] MEDS: ketorolac 30 mg/mL INJ 15 MG IVP ×2 (03:07→14:40)
--- NOTE | 2022-08-11 05:54 | P.SS_ITS ---
Short Stay Summary Providers Date of Admit/Discharge: 08/11/22 Attending Provider: Kev Squires MD Primary Care Provider: Shannno Patrick Chief Complaint: left flank pain HPI History of Present Illness Morris Ibrahim is a 52 year old male well-known to me for history of a left mid/proximal ureteral stone with obstruction and severe symptomatology poorly controlled with oral medication. He had been admitted through the emergency department on 08/09/2022 for that reason. He was aggressively managed with medication and was observed overnight and felt to be a good candidate for further convalescence at home with anticipation of spontaneous stone passage. Unfortunately he was not able to manage his pain well long enough to allow that to happen and presented back to the emergency department last night with poorly controlled symptoms despite utilizing all the medication he had available including oral Percocet. Was admitted through the emergency department for further evaluation and treatment for refractory left renal colic associated with a stone. No UTI No other concerning comorbidities. No fever or chills. KUB in the emergency department was nondiagnostic. Hard to see the stone. Could not identify any further advancement. We had a long discussion regarding the findings and treatment options includ ing further conservative management or treatment via ESWL or endoscopy with the nuances of each position with benefits risks thoroughly discussed. After detailed [id number] he elected to proceed with intervention today with endoscopic procedure. Informed consent was obtained for cystoscopy, LEFT: Retrograde, ureteroscopy, laser, stent Review of Systems Const: Denies: fever(s) or chills Eyes: Denies: change in vision or yellow eyes ENMT: Denies: hoarseness Card: Denies: chest pain or palpitations Resp: Denies: dyspnea or productive cough GI: Reports: abdominal pain, nausea and vomiting : Reports: flank pain; Denies: difficulty urinating Musc: Denies: joint redness Skin/Breast: Denies: rash Neuro: Denies: confusion, behavioral changes or Slurred speech present Psych: Denies: anxiety or depression Endo: Denies: flushing Bruce/Lymph: Denies: easy bruising or easy bleeding All/Imm: Denies: urticaria or acute wheezing Home Meds/Allergies Home Medications and Allergies Home Medications Medication Instructions Recorded Confirmed Type simvastatin 10 mg tablet 10 mg PO BEDTIME 01/29/21 08/10/22 History cetirizine 10 mg tablet (Zyrtec) 10 mg PO BEDTIME 08/09/22 08/10/22 History multivitamin 1 tab PO QAM 08/09/22 08/10/22 History tramadol 50 mg tablet 50 mg PO Q8H PRN Back Pain 08/09/22 08/10/22 History Allergies Allergy/AdvReac Type Severity Reaction Status Date / Time ciprofloxacin [From Cipro] Allergy Unknown Verified 08/09/22 12:29 Penicillins Allergy unsure Verified 08/09/22 12:29 PFSH Acute PFSH: Medical History (Updated 08/11/22 @ 18:54 by Kev Squires MD) Chronic low back pain High cholesterol Tubular adenoma of colon Urolithiasis Surgical History Status post colonoscopy Family History (Updated 08/11/22 @ 18:52 by Kev Squires MD) Other Family history of prostate cancer Social History Smoking and tobacco status: never smoked Alcohol intake: never Vitals/I&O/Wt Last Vital Signs Temp 98.7 F 08/11/22 03:39 Pulse 63 08/11/22 03:39 Resp 17 08/11/22 03:39 BP 114/67 08/11/22 03:39 Pulse Ox 92 08/11/22 03:39 O2 Del Method 08/11/22 03:39 08/10/22 08/10/22 08/11/22 14:59 22:59 06:59 Intake Total 1000 / 1000 Balance 1000 / 1000 Weight last 48 hrs Weight 155 lb Weight 155 lb Physical Exam Const: COMMON NORMALS: no acute distress, alert and well nourished GENERAL APPEARANCE: well kempt and well developed ORIENTATION/CONSCIOUSNESS: not confused Resp: COMMON NORMALS: normal respiratory effort EFFORT & INSPECTION: Yes able to speak in complete sentences, No labored and No Actively coughing Cardio: COMMON NORMALS: negative for regular rate and negative for regular rhythm RATE: abnormal rate RHYTHM: abnormal rhythm GI: OTHER: Soft Extremity: OTHER: Normal range of motion Neuro: COMMON NORMALS: no focal motor deficits SENSORIUM/ORIENTATION: Yes alert Psych: COMMON NORMALS: mental status grossly normal APPEARANCE: Yes grossly normal and Yes well kempt ATTITUDE: Yes calm and Yes engaged Skin: COMMON NORMALS: no rashes or lesions noted and no jaundice GENERAL SKIN EXAM: no rashes or lesions noted Hospital Course Admission Diagnoses 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 Pain became refractory again at home and required admission. No evidence of infection. Hospital Course He was admitted through the emergency department with aggressive parenteral pain medication. Pain was reasonably well controlled parenterally. We discussed his options which would include continued conservative management inpatient or outpatient, ESWL +/- stent, endoscopic laser lithotripsy +/- stent. The options were explained in detail. Ultimately he elected endoscopic treatment. On the day of admission he underwent cystoscopy, LEFT, retrograde, ureteroscopy, laser, stent. He also had some mild oozing from the bladder neck/prostatic vesicle junction which was easily controlled with pinpoint fulguration. Intraoperative findings included a very NARROW UVJ requiring high pressure dilation to allow passage of the scope. Both rigid ureteroscopy and flexible ureterorenoscopy with laser lithotripsy were utilized for complete fragmentation of the stone. Based on 2 areas of significant inflammatory changes (the left UVJ and the left proximal ureter where the stone had been located) it was decided to leave the stent in for healing passive dilation. After fulguration of the small area of bleeding on the prostate there is no further oozing. Postoperatively he did well but had typical stent symptoms of urgency frequency left flank pain with voiding blood in urine etc. We spent a while talking about management of those as well as reasonable expectations moving forward. Also had a good deal conversation about how long the stent should remain in place before removal to allow adequate healing. There was decided to follow-up in about 2 weeks with a KUB and discussion at that time. I would lean toward leaving the stent in longer if he can tolerate it well and if not then considering relook to make sure healing is adequate to leave the stent out or confirm that it is worth putting up with the symptoms of the stent for the necessity of further healing. Both the patient and his expressed good understanding regarding the conversation and asked appropriate questions and seemed content with my answers. Discharge Summary See above SSS Data Data Completed and Pending: Completed Studies During Hospitalization Category Date Time Status XR KUB [id number] Stat Exams 08/10/22 22:02 Completed Pending at discharge Category Date Time Status Urine Culture Sta t Lab 08/10/22 22:42 Received Procedures Performed: 1. Cystoscopy LEFT retrograde ureteropyelogram 2. LEFT ureteroscopy, laser, stent 3. Fulguration of bladder neck/prostate bleeding Diagnoses at Discharge Discharge Diagnosis (1) Retained ureteral stent: Status: Acute (2) Urolithiasis: Status: Acute (3) Hydronephrosis, left: Status: Acute (4) Left ureteral calculus: Status: Acute Discharge Plan Discharge Patient Disposition: Home Condition: Stable Prescriptions: New sulfamethoxazole-trimethoprim 800-160 mg tablet 1 tab PO BID 7 Days Qty: 14 1RF Continued simvastatin 10 mg tablet 10 mg PO BEDTIME multivitamin Tablet 1 tab PO QAM cetirizine [Zyrtec] 10 mg Tablet 10 mg PO BEDTIME tramadol 50 mg Tablet 50 mg PO Q8H PRN (Reason: Back Pain) tamsulosin 0.4 mg capsule 0.4 mg PO DAILY Qty: 30 5RF oxycodone-acetaminophen [Percocet] 5-325 mg tablet 1 - 2 tab PO Q6H Qty: 18 0RF ondansetron HCl 4 mg tablet 4 mg PO Q8H 4 Days Qty: 10 1RF Discharge Orders: Discharge Order (Routine); Ordered 08/11/22 Ordered By: Kev Squires Referrals: Shannon Patrick FNP [Primary Care Provider] - 08/22/22 12:30 pm Kev Squires MD [Physician] - (dr squires office will call with appointment) Discharge Diet: Advance as tolerated Discharge Activity: Limit activity as instructed Patient Instructions: Sulfamethoxazole/Trimethoprim (By mouth) (Bactrim, Bactrim DS,..., Ureteral Stones (DC), Cystoscopy (DC), Ureteroscopy (DC), Opioid Safety Activity Restrictions/Additional Instructions: 1. As we talked about in your room, it is quite common to have urgency, frequency, blood in urine, left flank pain with voiding all related to your stent as well as the procedure in general. Most of the time the symptoms improve day by day. 2. A lot of blood in the urine is rather heinous in appearance, unless it is forming large clots that makes it hard to empty the bladder it really does not carry much significance. 3. It took a lot of work to not only treat the stone but to actually access it with high-pressure dilation and manipulation past the area inflammatory change where the stone had been located. That was the reason to leave a stent then and to maintain it longer to facilitate healing. The exact timing of achievement of a safe level of healing is speculative. On follow-up in 2 weeks if you are tolerating the stent well there is certainly some merit in keeping any longer. It may be reasonable if the stent is very poorly tolerated even at 2 weeks to consider relocating to decide whether it is safe to remove it by direct visualization of the ureter or contrary to that that the stent is indeed necessary for further healing before removal. 4. [facility] Complete the course. There is 1 refill available in case 5. Limiting strenuous activity I think would be helpful symptomatically. After a few days if the bleeding is improving we can test the vasquez and see if you tolerate more activity. Really the only concern would be whether it makes you have more bleeding or not. 6. I have office number is [phone] for normal working hours questions. The hospital sand and gravel plant operator can reach me after hours. 7. We will review stone risk reduction strategies to employ so that we may avoid this again in the future. Handout will be provided and explained. 8. Remember to drink fluids to keep your urine flushed. Attestations Medical Necessity Statement*: Required aggressive pain management after failure of trying to control pain at home with oral narcotics alone. Surgical intervention elected because of the difficulty of the refractory pain. Time Spent in Patient Care*: greater than 30 min Quality Metrics Clinical Quality Measures: [ No reported AMI, CVA or VTE this stay ] Coding Level of Care Code Acute Code for Chg Fwd Diagnoses Retained ureteral stent Z96.0 Urolithiasis N20.9 Hydronephrosis, left N13.30 Left ureteral calculus N20.1
--- NOTE | 2022-08-11 10:39 | P.ANESASSM_ITS ---
Pre-Anesthetic Assessment Height/Weight: Height 1.7 m Weight 70.307 kg Temp Pulse Resp BP Pulse Ox O2 Del Method 98.7 F 70 17 119/74 97 08/11/22 03:39 08/11/22 07:00 08/11/22 08:07 08/11/22 07:00 08/11/22 07:00 08/11/22 03:39 Preop Diagnosis: screening Operation Date: 08/11/22 11:30 Proposed Procedures p Cystoscopy(Not Applicable) - Kev Gaviria MD s Retrograde Pyelogram(Left) - Kev Gaviria MD s Ureteroscopy(Left) - Kev Gaviria MD s Laser Lithotripsy(Left) - Kev Gaviria MD Familial anesthetic complications: None Was Beta Criss taken within 24 hours: N/A Was Clonidine taken within 24 hours: N/A Last intake: > 8hrs Social No alcohol and No tobacco Exam alert, oriented x 3, clear to auscultation bilaterally and regular rate & rhythm Airway Mallampati: Class I Dentition: chipped Pulmonary Asthma (Childhood) Metabolic Hyperlipidemia Anesthetic Plan ASA status: 2 Anesthesia: General Risk of > 500 ml blood loss (7ml/kg in children): No Medications/Allergies Home Medications Medication Instructions Recorded Confirmed Last Taken Type simvastatin 10 mg tablet 10 mg PO BEDTIME 01/29/21 08/10/22 08/10/22 21:00 History cetirizine 10 mg tablet (Zyrtec) 10 mg PO BEDTIME 08/09/22 08/10/22 08/08/22 21:00 History multivitamin 1 tab PO QAM 08/09/22 08/10/22 08/08/22 08:00 History tramadol 50 mg tablet 50 mg PO Q8H PRN Back Pain 08/09/22 08/10/22 Unknown History ondansetron HCl 4 mg tablet 4 mg PO Q8H 4 days #10 tabs 08/10/22 08/10/22 Unknown Rx oxycodone-acetaminophen 5 mg-325 1 - 2 tab PO Q6H #18 tabs 08/10/22 08/10/22 08/10/22 21:00 Rx mg tablet (Percocet) tamsulosin 0.4 mg capsule 0.4 mg PO DAILY #30 caps 08/10/22 08/10/22 08/09/22 21:00 Rx Allergies Allergy/AdvReac Type Severity Reaction Status Date / Time ciprofloxacin [From Cipro] Allergy Unknown Verified 08/09/22 12:29 Penicillins Allergy unsure Verified 08/09/22 12:29 Current Medications Generic Name Dose Route Start Last Admin Trade Name Freq PRN Reason Stop Dose Admin Sodium Chloride 1,000 mls @ 100 mls/hr 08/10/22 23:15 08/10/22 23:38 Sodium Chloride 0.9% IV 100 mls/hr .Q10H MILENA Administration Ketorolac Tromethamine 15 mg 08/11/22 02:58 08/11/22 03:07 Ketorolac 30 Mg/Ml Inj IVP 08/16/22 02:57 15 mg Q6H PRN Administration MODERATE PAIN Morphine Sulfate 4 mg 08/10/22 23:15 08/11/22 08:07 Morphine 4 Mg/Ml Sdv 1 Ml IVP 4 mg Q4H PRN Administration SEVERE PAIN PFSH Anesthesia Medical History (Updated 08/11/22 @ 06:00 by Kev Gaviria MD) Chronic low back pain High cholesterol Tubular adenoma of colon Urolithiasis Surgical History Status post colonoscopy Social History Smoking and tobacco status: never smoked Alcohol intake: never Data Anesthesia 08/10/22 22:22 08/10/22 22:22 Short CBC 08/10/22 Range/Units 22:22 WBC 11.6 H (4.0-10.0) 10^3/uL Hgb 13.9 (11.7-16.6) g/dL Hct 41.1 L (42.0-52.0) % MCV 92.6 (80-94) fl Plt Count 202 (130-400) 10^3/cmm Neut % (Auto) 67.3 % Neut # (Auto) 7.81 H (1.8-7.7) 10^3/uL BMP 08/10/22 22:22 Sodium 146 H Potassium 3.8 Chloride 107 Carbon Dioxide 29 BUN 16 Creatinine 1.6 H Glucose 98 Calcium 9.1 Liver Function 08/10/22 Range/Units 22:22 Total Bilirubin 0.6 (0.15-1.2) mg/dL AST 32 (0-40) U/L ALT 23 (0-41) U/L Alkaline Phosphatase 45 (40-130) U/L Albumin 4.1 (3.5-5.2) g/dL Urine 08/10/22 Range/Units 22:42 Urine Color Yellow (Yellow) Urine Appearance Sl hazy A (CLEAR) Urine pH 5 (5-7) Ur Specific [place] 1.025 (1.005-1.030) Urine Protein Neg (Negative) Urine Glucose (UA) Norm (Normal) Urine Ketones Negative (Negative) Urine Nitrate Negative (Negative) Urine Bilirubin Neg (Negative) Ur Leukocyte Esterase Negative (Negative) Urine RBC 25-40 H (0-2) /hpf Urine WBC None (0-5) /hpf Cardiac Studies: No Data to Display
--- NOTE | 2022-08-11 10:47 | PC.CHAP ---
Pastoral Care Encounter/Spiritual Assessment Type of Contact [] Declined epic stork specialists visit [] Patient/Family/Request visit [] Outpatient visit [] Follow-up visit [] Physician referral [] Code/Alert [x] Routine visit [] Staff referral [] Actively dying [] Patient sleeping [] Family support [] [] Out of room [] Palliative care [] [x] Receiving care in room [x] Pre-surgical visit [] Trauma [] Long length of stay [] ICU visit [] Other: Relational/Emotional Strength [x] Patient feels connected with others/family/visitors/staff [] Distress [] Loneliness/isolation [] Abandonment Spirituality of Patient [x] Person of Constance [] Attends Buddhist of their Constance [x] Believes in Prayer [] Reads Bible or Anabaptist materials [] There are Spiritual issues to be addressed [place] Mason Interventions [x] Prayer [x] Active listening [x] Non-anxious presence [x] Spiritual/emotional support [] Crisis/trauma care [x] Spiritual counseling [] Bereavement support [] Provided bereavement packet [] Provided Bible/devotional materials [] Provided toy/stuffed animal, coloring book to patient or family member [] Provided Communion [] Anointing/[place] [] Salvation [x] Completed spiritual assessment [] Other: Impact on Illness or Injury [] Angry [] Fearful [] Anxious [] Often cries [] Exhaustion [] Unable to work [] Unable to attend zoroastrian [] Unable to walk/stand [] Unable to read [] Unable to drive [] Unable to eat/drink [] Unable to sleep [] Unable to be with family [] Patient intubated [] Other: Summary senior Kindchaitanya stones going into proceeduer susana remove kindney stones +1 family well go home Time spent with patient 10 mins
[2022-08-11] MEDS: sodium chloride 0.9% 1,000 ML 30 ML IV (10:51)
--- NOTE | 2022-08-11 10:52 | PC.NURSE ---
surgery pt went down to surgery at 1030
--- NOTE | 2022-08-11 11:30 | SC_ITS ---
WS: [id number] EXAMINATION: C-arm FL for Urology REASON FOR EXAM: Left ureteroscopy COMPARISON: None available. ORDER DATE: 08/11/2022 11:30 AM FINDINGS: A single C-arm view demonstrates the upper third of the double-J ureteral stent in the left paraspina l region. SC/C-arm FL for Urology IMPRESSION: Total fluoroscopy time 128.4 seconds
--- NOTE | 2022-08-11 11:49 | P.OP_ITS ---
Operative Report Date of procedure: August 11, 2022 Pre-op diagnosis: 1. Refractory symptomatic left mid ureteral stone failed conservative management Post-op diagnosis: 1. Refractory symptomatic left mid ureteral stone failed conservative management Procedure done: 1. Cystoscopy with LEFT retrograde ureteropyelogram 2. LEFT ureteroscopy, laser, stent Implants: Left ureteral stent, 6 Wallisian by 28 cm double-pigtail without string Specimens removed/disposition: Stone fragments Pathology: Stone fragments Surgeon: Everette Estimated blood loss: Minimal Urine output: Not measured Complications: None Findings: Anesthesia: General Condition: Stable Disposition: PACU Intraoperative findings: * Stone was in the expected position in the proximal ureter. * Had a very very tight distal ureter requiring very high-pressure dilation to open up adequately for scope passage. * A lot of inflammatory changes where the stone had been located. * 7 Wallisian by 30 stent left indwelling. No string * Required some fulguration of the intravesical protruding median lobe which was oozing at the end of the procedure based on multiple passages of the scope etc. easily controlled with Bugbee cautery. Brief History: Morris is a delightful 52-year-old white male recently diagnosed with a left proximal/mid ureteral stone with obstructive changes and severe renal colicky symptoms that were refractory to conventional treatment. He did require 1 night in the hospital and was felt to be based on his symptomatic improvement a reasonable candidate for further conservative management in the outpatient but failed to be able to control his symptoms adequately was readmitted the same night that he was discharged. Creatinine had bumped up somewhat 2. No evidence of infection. Ultimately elected to proceed with intervention with the hope of definitive treatment Procedure: After routine preoperative evaluation examination and obtaining of informed consent he was taken to the operating suite on 08/11/2022 where general and seizure was administered without difficulty after appropriate timeout was performed, SCDs confirmed to be functioning, beta-waylon confirmed. Prepped and draped in usual sterile fashion in dorsolithotomy position pain careful attention to avoiding pressure points. 21 Wallisian cystoscope with 30 degree lens was introduced to the urethra meatus and advanced into the bladder under videoscopy. The bladder was systematically examined and found to be within normal limits. No stone was seen. An 8 Wallisian cone-tip catheter was intubated into the LEFT ureteral orifice for LEFT RETROGRADE URETEROPYELOGRAM demonstrating: Normal course and caliber of the ureter. The stone was seen as a filling defect in the proximal ureter and the ureter proximal to that was dilated as was the pyelocalyceal system A flexible tip guidewire was then advanced up the left ureter bypassing the stone easily curling in the area of the upper pole calyx. Because the ureteral orifice was very small it was decided to dilate immediately with the balloon. A 15 Wallisian 4 cm balloon was utilized and what was discovered was a very very tight narrowing of the distal ureter just inside the ureteral orifice. There was no evidence of a stone there. It actually required 20 khari of pressure to dilate this 1 area adequately. The remaining the balloon was left in place for about 5 minutes with 4 khari of pressure. The wire was secured to the drapes as a safety wire and a 7 Wallisian offset semirigid ureteroscope was then advanced next to the wire up the ureter. The area of tight dilation was clearly seen to be balloon dilation traumatized as expected but nothing dramatic. The scope was passed all the way to the proximal ureter where the stone was encountered and a rather inflamed area. Only a portion of the stone could be easily seen but it was fragmented well with a 365 ?m thulium superpulse laser fiber. The stone migrated somewhat proximally in the offset semirigid ureteroscope could not be passed easily through the inflamed area. The scope was removed. A second guidewire was then passed and the inner sheath of a 24 cm ureteral access sheath was passed over the second wire which was used as a working wire to confirm easy passage. The sheath was then reinserted and the access sheath and it was advanced under fluoroscopic guidance to the hub. The inner sheath was removed and the flexible ureteroscope (7 Wallisian) was then passed over the working wire and manipulated into the proximal ureter beyond the narrowed area. There was a remaining fragment in the proximal ureter that was easily accessed and fragmented with a 200 ?m thulium superpulse laser fiber. The scope was then passed into the renal pelvis where several other fragments were identified and completely fragmented. Completion I could not see any residual stone fragments. A lot of the fragments passed through the sheath as sand. None of them are large enough to secure in a grasping forcep or basket. The sheath was then backed onto the hub of the scope and the scope was removed under direct visualization of the ureter. No residual fragments of consequence were identified. The area of inflammation where the stone had been located was confirmed. There was no severe trauma. Some contrast was injected to assist with stent location and visualization of the upper tract and as expected no extravasation. The scope was then removed again with examination of the ureter was removed. The only other area of inflammatory changes of any consequence was the area of dilation that required high-pressure as mentioned above. The cystoscope was then backloaded over the safety wire and a 7 Wallisian by 30 cm double-pigtail stent was advanced over the guidewire through the cystoscope into appropriate position as confirmed via fluoroscopy and cystoscopy. The bladder was drained. There were some very small fragments of were seen in the bladder that were flushed out and attempts were made to try to secure those out of the drapes. He was awakened in the operating room and returned to the recovery room in stable condition PLANS: 1. Anticipate discharge after recovery on the floor later today. 2. Follow-up in about a week for cystoscopy and stent removal
--- NOTE | 2022-08-11 13:33 | SUR.PHASEI ---
1331 oral airway removed at this time. resp even and non labored. spo2 95% on ra.
[2022-08-11] MEDS: HYDROcodone-acetaminophen 5-325 mg Tablet 1 TAB PO (14:36)
[2022-08-11] MEDS: sodium chloride 0.9% 1,000 ML 100 ML IV (14:37)
[2022-08-11] MEDS: sulfamethoxazole-trimeth DS 160-800 mg Tablet 1 TAB PO ×2 (14:53→17:48)
[2022-08-11] MEDS: phenazopyridine 100 mg Tablet 200 MG PO (14:55)
[2022-08-17 22:20] LABS: Stone Source LEFT URETERAL STONE
== END 2022-08-11 19:26 | disposition home or self-care (01) ==
LOC: ER 22:29 → MEDSURG 22:54
PROVIDERS: Admitting Provider Urology; Emergency Provider Emergency Medicine; PCP Nurse Practitioner Family; Visit Provider Urology
PROC: 0TJB8ZZ Inspection of Bladder, Via Natural or Artificial Opening Endoscopic (ICD-10-PCS; CPT 52000; principal; 2022-08-11 11:30)
PROC: (CPT 74420; 2022-08-11 11:30)
PROC: 0TJ98ZZ Inspection of Ureter, Via Natural or Artificial Opening Endoscopic (ICD-10-PCS; CPT 52351; 2022-08-11 11:30)
PROC: (CPT 52356; 2022-08-11 11:30)
PROC: 0VT08ZZ Resection of Prostate, Via Natural or Artificial Opening Endoscopic (ICD-10-PCS; CPT 52601; 2022-08-11 11:30)
PROC: (CPT 50605; 2022-08-11 11:30)
DX: N20.1 Calculus of ureter (principal); Z96.0 Presence of urogenital implants; N20.9 Urinary calculus, unspecified; N13.30 Unspecified hydronephrosis; E78.5 Hyperlipidemia, unspecified
CPT/HCPCS: 52356; 74018; 76000; 80053; 81001; 82365; 83690; 85025; 87086; 88300; 96374; 96375; 99285; C2625; G0378; J1100; J1170; J1885; J2060; J2250; J2270; J2405; J2704; J3010; J7030

== ENCOUNTER 2022-08-12 10:19 | Outpatient (CLI) | payer OTHER, SELFPAY ==
[2022-08-12 11:11] LABS: Alanine Aminotransferase 18 U/L (0-41); Albumin Level 3.8 g/dL (3.5-5.2); Alkaline Phosphatase 40 U/L (40-130); Anion Gap 11.8 (5-19); Aspartate Amino Transferase 20 U/L (0-40); Blood Urea Nitrogen 11 mg/dL (6-20); Carbon Dioxide 27 mmol/L (22-29); Chloride 106 mmol/L (98-107); Globulin 2.6 g/dL (1.3-4.6); Glomerular Filtration Rate 63.8 mL/min (90-130); Glucose 112 mg/dL (65-115); Osmolality Calculated 292 mOsm/kg (285-295); Potassium 3.8 mmol/L (3.5-5.1); Sodium 141 mmol/L (136-145); Total Bilirubin 0.5 mg/dL (0.15-1.2); Total Protein 6.4 g/dL (6.6-8.7)
== END 2022-08-12 10:20 | disposition home or self-care (01) ==
PROVIDERS: PCP Nurse Practitioner Family; Visit Provider Urology
DX: N13.30 Unspecified hydronephrosis (principal)
CPT/HCPCS: 36415; 80053

== ENCOUNTER 2022-08-18 13:38 | Outpatient (CLI) | payer OTHER, SELFPAY ==
--- NOTE | 2022-08-18 14:23 | XR_ITS ---
WS: [id number] Exam: XR KUB [id number] Date/Time of Exam: 08/18/2022 2:23 PM Reason For Exam: stones No bowel obstruction or free air. A left-sided ureteral stent catheter is in place appearing to be in appropriate location. No sign of organ enlargement. Regional bony elements are intact. XR/XR KUB [id number] IMPRESSION: 1. Left-sided ureteral stent catheter in place in satisfactory position. 2. No acute abdominal finding.
== END 2022-08-18 13:39 | disposition home or self-care (01) ==
PROVIDERS: PCP Nurse Practitioner Family; Visit Provider Urology
DX: N20.1 Calculus of ureter (principal); Z96.0 Presence of urogenital implants
CPT/HCPCS: 74018; 81003

== ENCOUNTER → 2022-09-01 16:02 | Outpatient (BNVA) | payer OTHER, SELFPAY | PROVIDERS: PCP Nurse Practitioner Family; Visit Provider Urology | DX: N20.9 Urinary calculus, unspecified (principal); Z12.5 Encounter for screening for malignant neoplasm of prostate | CPT/HCPCS: 81003 ==

== ENCOUNTER 2022-10-28 08:53 | Outpatient (CLI) | payer OTHER, SELFPAY ==
[2022-10-28 09:50] LABS: Prostate Specific AG Urology 1.13 ng/mL (0-4)
== END 2022-10-28 08:54 | disposition home or self-care (01) ==
PROVIDERS: PCP Nurse Practitioner Family; Visit Provider Urology
DX: Z12.5 Encounter for screening for malignant neoplasm of prostate (principal)
CPT/HCPCS: 36415; 84153

== ENCOUNTER 2022-10-31 08:49 | Outpatient (CLI) | payer OTHER, SELFPAY ==
--- NOTE | 2022-10-31 09:00 | US_ITS ---
WS: [id number] RENAL ULTRASOUND HISTORY: HYDRONEPHROSIS COMPARISON: CT noncontrast 08/09/2022 TECHNIQUE: 2-D and color Doppler imaging of the kidney submitted. Right kidney: 10.7 cm x 6.0 cm x 5.7 cm. Cortex: 1.3 cm Normal echogenicity with no hydronephrosis or mass. Left kidney: 10.6 cm x 5.1 cm x 4.6 cm. Cortex: 1.5 cm Normal echogenicity with no hydronephrosis or mass. No definite hydronephrosis is identified by ultra sound. There was mild dilatation of the LEFT renal pelvis noted on the recent CT of 08/09/2022. Aorta: Normal. Urinary Bladder: Normally distended bladder. No intraluminal filling defect. Prostate is mildly heter ogeneous measuring 4.0 x 4.9 x 3.0 cm. US/US renal BI* [id number] IMPRESSION: 1. Cannot confirm residual LEFT hydronephrosis. No calyceal dilatation. The re nal pelvis does not appear dilated. 2. Mild prostate enlargement.
== END 2022-10-31 08:50 | disposition home or self-care (01) ==
PROVIDERS: PCP Nurse Practitioner Family; Visit Provider Urology
DX: N13.0 Hydronephrosis with ureteropelvic junction obstruction (principal)
CPT/HCPCS: 76770; 81003

== ENCOUNTER 2023-09-05 14:16 | Emergency (ER) | payer OTHER, SELFPAY ==
[2023-09-05 14:21] VITALS: BP 154/89; PULSE 58; RESP 16; TEMP 36.7; O2SAT 100
--- NOTE | 2023-09-05 14:26 | ED_ITS ---
Documented by User: TENZIN Lama 09/06/23 13:21 HPI - Neck Pain/Injury 2 General: Chief Complaint: Neck Pain/Injury Stated Complaint: neck pains Time Seen by Provider: 09/05/23 14:24 Source: patient Mode of arrival: ambulatory Limitations: no limitations History of Present Illness: Patient is a 53-year-old male who presents to ED today with a complaint of neck pain. Patient states he first began noticing neck pain approximately 5 days or so ago. He states he does have some mild posterior neck pain but most of it seems to be on the right lateral aspect. He states over the weekend he began noticing painful swallowing. Patient has been able to eat and drink although states he has not wanted to secondary to the discomfort. He is controlling saliva normally. No muffled voice. He does not have any dental pain. He has not noticed any swelling to the neck. He reportedly was seen by his PCP who referred him to the emergency department for some concern of possible meningitis. He does not complain of a severe headache. No fevers. He states pain is worse with range of motion of his neck and swallowing. He has not noticed any neurologic deficits. MD complaint: neck pain Onset (ago): day(s) Place: home Radiation: right lateral Severity: moderate Duration: constant Relieving factors: none Exacerbating factors: movement of neck and swallowing Associated symptoms: Denies headache(s) or nausea Treatments prior to arrival: ibuprofen Review of Systems 2 Const: Denies: fever(s), chills, body aches, fatigue or malaise Eyes: Denies: change in vision, blurry vision, photophobia, floaters or seeing flashes ENMT: Reports: throat pain and odynophagia; Denies: uvular edema, enlarged tonsils, hoarseness, mouth pain, swelling of lips/tongue, oral sores, dental pain, ear or mastoid pain, tinnitus, nasal discharge, nasal congestion or sinus pain Card: Denies: chest pain Resp: Denies: dyspnea GI: Denies: nausea or vomiting Musc: Reports: neck pain; Denies: back pain, extremity pain, extremity swelling, joint pain or joint swelling Skin/Breast: Denies: rash Neuro: Denies: headache(s), numbness in extremities, weakness in extremities or sensory changes PFSH ED 2 PFSH: Medical History Urolithiasis High cholesterol Chronic low back pain Tubular adenoma of colon Surgical History Status post colonoscopy Family History Other Family history of prostate cancer Social History Smoking and tobacco/nicotine status: never used tobacco/nicotine Alcohol intake: never Marital status: Current occupational status: employed Physical Exam 2 Const: COMMON NORMALS: no acute distress, average body habitus, patient oriented x3, no limitations, healthy appearing, alert and well nourished G ENERAL APPEARANCE: cooperative ORIENTATION/CONSCIOUSNESS: Yes awake, Yes oriented to person, Yes oriented to place and Yes oriented to time HENMT: COMMON NORMALS: normocephalic, atraumatic, oropharynx normal and dentition normal HEAD & SCALP: normal to inspection, normocephalic and atraumatic FACE & SINUS: normal facial exam and face symmetric MOUTH: N ormal oral and palatal mucosa present, lip normal, tongue normal and Normal salivary glands and ducts present; no audible dysphonia, no drooling and no muffled voice THROAT: posterior oropharynx normal and tonsils normal; no uvular edema Eye: COMMON NORMALS: Equal, round and reactive pupils present and EOMs intact bilaterally GENERAL EYE: appearance normal, both eyes and all related structures and normal light reflex PUPIL: Yes Equal, round and reactive pupils present DIRECT OPHTHALMOSCOPY: Yes normal light reflex Neck/C-Spine: COMMON NORMALS: no lymphadenopathy, supple, no meningeal signs, no JVD, Thyroid normal and No carotid bruits GENERAL: Yes normal visual inspection, No anterior neck swelling and No submandibular swelling THYROID: Thyroid normal CERVICAL SPINE: Yes pain with cervical ROM, No Cervical spine tenderness and No step off deformity OTHER: patient with tenderness to R lateral neck without any clinical findings of edema, mass, flucutance, lymphadenopathy, bruits; does not have any midline tenderness; he is able to flex his neck forward fully; he has quite a bit of discomfort with lateral rotation to the right; better with lateral rotation to left Lymph: LYMPHATIC: no lymphadenopathy noted Chest: COMMONS NORMALS: normal inspection of the chest Resp: COMMON NORMALS: normal respiratory effort and clear to auscultation bilaterally AUSCULTATION: clear to auscultation bilaterally Cardio: COMMON NORMALS: no JVD, regular rate and regular rhythm RATE: r egular rate RHYTHM: regular rhythm Back/Pelvis: COMMON NORMALS: thoracic and lumbar spine normal to inspection and no thoracic nor lumbar tenderness Extremity: COMMON NORMALS: normal to inspection and full ROM GENERAL: Yes normal exam except as noted Neuro: LUI COMA SCALE: document GCS findings Britton coma scale eye opening: Spontaneous Lui coma scale verbal response: Orientated Britton coma scale motor response: Obey commands Britton coma scale total score: 15 COMMON NORMALS: patient oriented x3, CN's II-XII intact bilaterally, moves all extremities, no focal motor deficits and no sensory deficits noted S ENSORIUM/ORIENTATION: Yes alert, Yes oriented to person, Yes oriented to place and Yes oriented to time MENINGEAL SIGNS: Yes no meningeal signs Skin: COMMON NORMALS: no rashes or lesions noted GENERAL SKIN EXAM: no rashes or lesions noted Course 2 ED course: Discussed with Dr. Hodge in regards to CTA results. He is recommending MRI with and without contrast for further clarification of findings. Patient is currently over an MRI. Care will be transferred to Remington Syed PA-C at 1700/shift change. ES Vital Signs: Vital signs: Vital Signs Temperature 98.1 F 09/05/23 14:21 Pulse Rate 52 L 09/05/23 17:57 Respiratory Rate 16 09/05/23 18:44 Blood Pressure 149/72 09/05/23 18:44 Pulse Oximetry 98 09/05/23 17:57 Oxygen Delivery Me thod Room Air 09/05/23 17:57 MDM - Neck Pain/Injury Medical Records I reviewed the patient's medical records. Lab Data I reviewed the patient's lab results. 09/05/23 14:57 09/05/23 14:57 Radiology Impressions Cervical Spine MRI 09/05/23 15:53 IMPRESSION: 1. Retropharyngeal fluid collection extending from C2-C5 is again present. Given findings on the comparison CTA this is favored to be related to calcific tendinitis of the longus coli muscle. Recommend clinical correlation to exclude infection which would appear similar. No epidural abscess or fluid collection is seen. 2. Degenerative disc disease with severe stenosis of the spinal canal at C5-C6 with disc material compressing the left ventral cord without associated cord signal abnormality. ADDENDUM: 09/05/23 [id number] THIS REPORT CONTAINS FINDINGS THAT MAY BE CRITICAL TO PATIENT CARE. The findings were verbally communicated via telephone conference with TENZIN Syed at 6:02 PM CDT on 09/05/2023. The findings were acknowledged and understood. Laboratory Results WBC 9.46 10^3/uL (3.29-11.43) 09/05/23 14:57 RBC 4.76 10^6/uL (3.85-5.65) 09/05/23 14:57 Hgb 15.00 g/dL (11.27-16.99) 09/05/23 14:57 Hct 43.9 % (37-53) 09/05/23 14:57 MCV 92.2 fl (82-101) 09/05/23 14:57 MCH 31.5 pg (27-33) 09/05/23 14:57 MCHC 34.2 g/dL (30-55) 09/05/23 14:57 RDW 12.0 % (12.1-15.1) L 09/05/23 14:57 Plt Count 212 10^3/cmm (157-399) 09/05/23 14:57 MPV 9.8 fL (7.4-10.4) 09/05/23 14:57 Neut % (Auto) 73.5 % 09/05/23 14:57 Lymph % (Auto) 17.1 % 09/05/23 14:57 [place] % (Auto) 8.5 % 09/05/23 14:57 Eos % (Auto) 0.3 % 09/05/23 14:57 Baso % (Auto) 0.3 % 09/05/23 14:57 Neut # (Auto) 6.95 10^3/uL (1.8-7.7) 09/05/23 14:57 Lymph # (Auto) 1.6 10^3/uL (0.8-4.8) 09/05/23 14:57 [place] # (Auto) 0.8 10^3/uL (0.2-0.9) 09/05/23 14:57 Eos # (Auto) 0.0 10^3/uL (0.0-0.8) 09/05/23 14:57 Baso # (Auto) 0.0 10^3/uL (0.0-0.1) 09/05/23 14:57 Nucleated RBC % (auto) 0 % 09/05/23 14:57 Nucleated RBCs # 0.0 /100WBC 09/05/23 14:57 Sodium 139 mmol/L (136-145) 09/05/23 14:57 Potassium 4.3 mmol/L (3.5-5.1) 09/05/23 14:57 Chloride 101 mmol/L (98-107) 09/05/23 14:57 Carbon Dioxide 27 mmol/L (22-29) 09/05/23 14:57 Anion Gap 15.3 (5-19) 09/05/23 14:57 BUN 15 mg/dL (6-20) 09/05/23 14:57 Creatinine 1.0 mg/dL (0.7-1.2) 09/05/23 14:57 GFR Calculation 78.5 mL/min (90-130) L 09/05/23 14:57 Glucose 101 mg/dL (65-115) 09/05/23 14:57 Calculated Osmolality 289 mOsm/kg (285-295) 09/05/23 14:57 Calcium 9.8 mg/dL (8.5-10.5) 09/05/23 14:57 Total Bilirubin 0.9 mg/dL (0.15-1.2) 09/05/23 14:57 AST 13 U/L (0-40) 09/05/23 14:57 ALT 18 U/L (0-41) 09/05/23 14:57 Alkaline Phosphatase 65 U/L (40-130) 09/05/23 14:57 C-Reactive Protein 8.7 mg/L (0.0-4.9) H 09/05/23 14:57 Total Protein 7.5 g/dL (6.6-8.7) 09/05/23 14:57 Albumin 4.5 g/dL (3.5-5.2) 09/05/23 14:57 Globulin 3.0 g/dL (1.3-4.6) 09/05/23 14:57 All radiology interpretation(s) finalized by discharge ED provider radiology interpretation(s): IMPRESSION: 1. No evidence intracranial hemorrhage or mass effect. 2. Neck intracranial vessels are patent. 3. Retropharyngeal fluid collection extending from C2-C6 of indeterminate etiology with associated peripheral enhancement. Recommend MRI cervical spine without and with gadolinium enhancement to exclude epidural abscess considering clinical symptoms. 4. Disc bulging C5-C6 and C6-C7 with moderate central canal stenosis at C5-C6 and bilateral foraminal narrowing. Discharge Plan Discharge Patient Disposition: Home Clinical Impression: Degenerative disc disease, cervical, Spinal stenosis in cervical region Condition: Stable Prescriptions: New Naprosyn 500 mg tablet 500 mg PO BID PRN (Reason: pain) Qty: 60 0RF No Action simvastatin 10 mg tablet 10 mg PO BEDTIME doxycycline hyclate 100 mg capsule 100 mg PO BID 14 Days Qty: 28 0RF multivitamin Tablet 1 tab PO QAM cetirizine [Zyrtec] 10 mg Tablet 10 mg PO BEDTIME ondansetron HCl 4 mg tablet 4 mg PO Q8H 4 Days Qty: 10 1RF Discharge Orders: Discharge ED (Routine); Ordered 09/05/23 Ordered By: Zafar Syed Referrals: Shannon Patrick FNP [Primary Care Provider] - Discharge Diet: Usual diet Discharge Activity: Increase activity as tolerated Patient Instructions: Cervical Spinal Stenosis (ED), Degenerative Disc Disease (ED) Activity Restrictions/Additional Instructions: Follow-up with orthopedic/spine surgery as discussed this week. Pain medications as prescribed. Please return if you develop any new or concerning symptoms. Coding Level of Care Code ED Acid Concentrator for Chg Fwd Documented by User: TENZIN Todd 09/05/23 18:43 HPI - Neck Pain/Injury 2 General: Chief Complaint: Neck Pain/Injury Stated Complaint: neck pains Time Seen by Provider: 09/05/23 14:24 PFSH ED 2 PFSH: Medical History Urolithiasis High cholesterol Chronic low back pain Tubular adenoma of colon Surgical History Status post colonoscopy Family History Other Family history of prostate cancer Social History Smoking and tobacco/nicotine status: never used tobacco/nicotine Alcohol intake: never Marital status: Current occupational status: employed Physical Exam 2 Neuro: LUI COMA SCALE: document GCS findings Lui coma scale total score: 15 Course 2 Vital Signs: Vital signs: Vital Signs Temperature 98.1 F 09/05/23 14:21 Pulse Rate 52 L 09/05/23 17:57 Respiratory Rate 16 09/05/23 18:44 Blood Pressure 149/72 09/05/23 18:44 Pulse Oximetry 98 09/05/23 17:57 Oxygen Delivery Az thod Room Air 09/05/23 17:57 MDM - Neck Pain/Injury Medical Decision Making Care of this patient transferred to [place] by dayshift midlevel provider. Upon reevaluation, patient had noted worsening pain and trouble swallowing, as well as lateral neck pain. Patient initially sent for meningitis rule out, subsequently had normal laboratory workup, as patient was afebrile with no white count or other concerning signs. To rule out retropharyngeal abscess versus other emergent etiologies, CTA head and neck had been ordered that did not demonstrate any signs of mass or vascular issues. However there was a fluid collection noted that needed further evaluation with an MRI to rule out epidural abscess. Subsequently a cervical spine MRI revealed that the fluid collection was related to tendinitis calcification of the longus coli muscle, but further ruled out any abscess or other emergent findings. However, there was noted to be degenerative disc disease about the cervical region with severe stenosis at C5-C6. Radiologist noted that the disc was compressing against the left ventral cord. Dr. Olivo, orthopedic/spine surgeon, was not on-call but kindly answered and patient's case and current findings were discussed. As the patient has been clinically stable with no emergent findings, Dr. Olivo says that this patient can follow-up with him in the office this week for reevaluation. Upon discharge of the patient, he did state that his pain is better after pain medications and we will send him home with naproxen to take as needed. I did have a thorough conversation with him in regards to his imaging findings, as well as return precautions that would warrant return to the emergency department. He understands the plan and agrees with discharge home. Lab Data 09/05/23 14:57 09/05/23 14:57 Radiology Impressions Cervical Spine MRI 09/05/23 15:53 IMPRESSION: 1. Retropharyngeal fluid collection extending from C2-C5 is again present. Given findings on the comparison CTA this is favored to be related to calcific tendinitis of the longus coli muscle. Recommend clinical correlation to exclude infection which would appear similar. No epidural abscess or fluid collection is seen. 2. Degenerative disc disease with severe stenosis of the spinal canal at C5-C6 with disc material compressing the left ventral cord without associated cord signal abnormality. ADDENDUM: 09/05/23 9924 THIS REPORT CONTAINS FINDINGS THAT MAY BE CRITICAL TO PATIENT CARE. The findings were verbally communicated via telephone conference with TENZIN Syed at 6:02 PM CDT on 09/05/2023. The findings were acknowledged and understood. Laboratory Results WBC 9.46 10^3/uL (3.29-11.43) 09/05/23 14:57 RBC 4.76 10^6/uL (3.85-5.65) 09/05/23 14:57 Hgb 15.00 g/dL (11.27-16.99) 09/05/23 14:57 Hct 43.9 % (37-53) 09/05/23 14:57 MCV 92.2 fl (82-101) 09/05/23 14:57 MCH 31.5 pg (27-33) 09/05/23 14:57 MCHC 34.2 g/dL (30-55) 09/05/23 14:57 RDW 12.0 % (12.1-15.1) L 09/05/23 14:57 Plt Count 212 10^3/cmm (157-399) 09/05/23 14:57 MPV 9.8 fL (7.4-10.4) 09/05/23 14:57 Neut % (Auto) 73.5 % 09/05/23 14:57 Lymph % (Auto) 17.1 % 09/05/23 14:57 [place] % (Auto) 8.5 % 09/05/23 14:57 Eos % (Auto) 0.3 % 09/05/23 14:57 Baso % (Auto) 0.3 % 09/05/23 14:57 Neut # (Auto) 6.95 10^3/uL (1.8-7.7) 09/05/23 14:57 Lymph # (Auto) 1.6 10^3/uL (0.8-4.8) 09/05/23 14:57 [place] # (Auto) 0.8 10^3/uL (0.2-0.9) 09/05/23 14:57 Eos # (Auto) 0.0 10^3/uL (0.0-0.8) 09/05/23 14:57 Baso # (Auto) 0.0 10^3/uL (0.0-0.1) 09/05/23 14:57 Nucleated RBC % (auto) 0 % 09/05/23 14:57 Nucleated RBCs # 0.0 /100WBC 09/05/23 14:57 Sodium 139 mmol/L (136-145) 09/05/23 14:57 Potassium 4.3 mmol/L (3.5-5.1) 09/05/23 14:57 Chloride 101 mmol/L (98-107) 09/05/23 14:57 Carbon Dioxide 27 mmol/L (22-29) 09/05/23 14:57 Anion Gap 15.3 (5-19) 09/05/23 14:57 BUN 15 mg/dL (6-20) 09/05/23 14:57 Creatinine 1.0 mg/dL (0.7-1.2) 09/05/23 14:57 GFR Calculation 78.5 mL/min (90-130) L 09/05/23 14:57 Glucose 101 mg/dL (65-115) 09/05/23 14:57 Calculated Osmolality 289 mOsm/kg (285-295) 09/05/23 14:57 Calcium 9.8 mg/dL (8.5-10.5) 09/05/23 14:57 Total Bilirubin 0.9 mg/dL (0.15-1.2) 09/05/23 14:57 AST 13 U/L (0-40) 09/05/23 14:57 ALT 18 U/L (0-41) 09/05/23 14:57 Alkaline Phosphatase 65 U/L (40-130) 09/05/23 14:57 C-Reactive Protein 8.7 mg/L (0.0-4.9) H 09/05/23 14:57 Total Protein 7.5 g/dL (6.6-8.7) 09/05/23 14:57 Albumin 4.5 g/dL (3.5-5.2) 09/05/23 14:57 Globulin 3.0 g/dL (1.3-4.6) 09/05/23 14:57 Discharge Plan Discharge Patient Disposition: Home Clinical Impression: Degenerative disc disease, cervical, Spinal stenosis in cervical region Condition: Stable Prescriptions: New Naprosyn 500 mg tablet 500 mg PO BID PRN (Reason: pain) Qty: 60 0RF No Action simvastatin 10 mg tablet 10 mg PO BEDTIME doxycycline hyclate 100 mg capsule 100 mg PO BID 14 Days Qty: 28 0RF multivitamin Tablet 1 tab PO QAM cetirizine [Zyrtec] 10 mg Tablet 10 mg PO BEDTIME ondansetron HCl 4 mg tablet 4 mg PO Q8H 4 Days Qty: 10 1RF Discharge Orders: Discharge ED (Routine); Ordered 09/05/23 Ordered By: Zafar Syed Referrals: Shannon Patrcik, NUT CRACKER [Primary Care Provider] - Discharge Diet: Usual diet Discharge Activity: Increase activity as tolerated Patient Instructions: Cervical Spinal Stenosis (ED), Degenerative Disc Disease (ED) Activity Restrictions/Additional Instructions: Follow-up with orthopedic/spine surgery as discussed this week. Pain medications as prescribed. Please return if you develop any new or concerning symptoms. Coding Level of Care Code ED Acid Concentrator for Mirta Luciano
--- NOTE | 2023-09-05 14:46 | CT_ITS ---
WS: [id number] CTA HEAD AND NECK TECHNIQUE: Contrast enhanced CTA of the head and neck with coronal and sagittal reformatted images an d maximum intensity projection (MIP) images. NASCET criteria utilized. CLINICAL INFORMATION: R sided/posterior neck pain; painful swallowing COMPARISON: None. DLP: 975.[address] scans at [facility] use at least one of these dose optimization techniques: automated e xposure control; mA and/or kV adjustment per patient size (includes targeted exams where dose is matc hed to clinical indication); or iterative reconstruction. FINDINGS: Peripheral enhancing fluid collection in the retropharyngeal space extending from C2 inferi zakiya to C6. This is eccentric to the LEFT and extends into the LEFT carotid space. Recommend correlat ion with pharyngitis. [place] tonsils appear grossly normal. Mild thickening of the posterior pharyn geal soft tissues. No evidence of osteomyelitis. Recommend MRI of the cervical spine without and with gadolinium enhancement to exclude epidural abscess. Mild disc bulging at C5-C6 and C6-C7. Mild to moderate central canal stenosis at C5-C6 and mild centr al canal stenosis at C6-7. This would be better evaluated with MRI. Bilateral foraminal narrowing C5- C6. No evidence intracranial hemorrhage or mass effect. Ventricular system and basilar cisterns are paten t. Normal cook-white differentiation. Paranasal sinuses and mastoid air cells are well aerated. RIGHT: RIGHT, carotid artery is patent. No significant RIGHT ICA stenosis. ICA is patent to the skull base. LEFT: LEFT common carotid artery is patent. No significant LEFT ICA stenosis. LEFT ICA is patent to t he skull base. Vertebral arteries are patent. LEFT dominant vertebral artery. Proximal basilar artery is patent. Nor mal vascularity to the [place] territory bilaterally. Both ICAs are patent at the skull base. Small LEFT A1 segment. Normal vascularity to the JENNA and MCA territories bilaterally. No evidence of flow-limiting stenosis or aneurysm. IMPRESSION: 1. No evidence intracranial hemorrhage or mass effect. 2. Neck intracranial vessels are patent. 3. Retropharyngeal fluid collection extending from C2-C6 of indeterminate etiology with associated p eripheral enhancement. Recommend MRI cervical spine without and with gadolinium enhancement to exclud e epidural abscess considering clinical symptoms. 4. Disc bulging C5-C6 and C6-C7 with moderate central canal stenosis at C5-C6 and bilateral foramina l narrowing. Notified TENZIN Lama at 09/05/2023 3:38 PM.
[2023-09-05 15:03] LABS: Basophils % 0.3 %; Eosinophils % 0.3 %; Hematocrit 43.9 % (37-53); Lymphocytes # 1.6 10^3/uL (0.8-4.8); Lymphocytes % 17.1 %; Mean Corpuscular HGB Conc 34.2 g/dL (30-55); Mean Corpuscular Hemoglobin 31.5 pg (27-33); Mean Corpuscular Volume 92.2 fl (82-101); Mean Platelet Volume 9.8 fL (7.4-10.4); Monocytes # 0.8 10^3/uL (0.2-0.9); Monocytes % 8.5 %; Neutrophils # 6.95 10^3/uL (1.8-7.7); Neutrophils % 73.5 %; Nucleated Red Blood Cells % 0 %; Platelet Count 212 10^3/cmm (157-399); Red Blood Count 4.76 10^6/uL (3.85-5.65); White Blood Count 9.46 10^3/uL (3.29-11.43)
[2023-09-05] MEDS: iohexol 350 mg/mL 500 mL Btl (per mL) IV (15:08)
[2023-09-05 15:32] LABS: Alanine Aminotransferase 18 U/L (0-41); Albumin Level 4.5 g/dL (3.5-5.2); Alkaline Phosphatase 65 U/L (40-130); Anion Gap 15.3 (5-19); Aspartate Amino Transferase 13 U/L (0-40); Blood Urea Nitrogen 15 mg/dL (6-20); C Reactive Protein 8.7 mg/L (0.0-4.9); Calcium 9.8 mg/dL (8.5-10.5); Carbon Dioxide 27 mmol/L (22-29); Chloride 101 mmol/L (98-107); Creatinine Clr Calc Pharmacy 81.7368; Glomerular Filtration Rate 78.5 mL/min (90-130); Glucose 101 mg/dL (65-115); Osmolality Calculated 289 mOsm/kg (285-295); Potassium 4.3 mmol/L (3.5-5.1); Sodium 139 mmol/L (136-145); Total Bilirubin 0.9 mg/dL (0.15-1.2); Total Protein 7.5 g/dL (6.6-8.7)
--- NOTE | 2023-09-05 15:53 | MRR_ITS ---
PROCEDURE INFORMATION: Exam: MR Cervical Spine Without and With Contrast Exam date and time: 09/05/2023 4:27 PM Age: 53 years old Clinical indication: Pain and abnormal findings; Abnormal xray or scan of neck and cervical spine; Neck pain; Additional info: Abnormal CT findings; Retropharyngeal fluid collection? TECHNIQUE: Imaging protocol: Magnetic resonance imaging of the cervical spine without and with contrast. Contrast material: MULTIHANCE; Contrast volume: 14 ml; Contrast route: INTRAVENOUS (IV); COMPARISON: CT angio headneck* [id number] 09/05/2023 3:08 PM FINDINGS: Bones/joints: The cervical spinal alignment is near anatomic. The vertebral body heights are maintained. There is diffuse disc desiccation without significant height loss. No suspicious marrow signal. No fracture. Spinal cord: Spinal cord signal is normal. No abnormal enhancement of the cord. Spinal epidural space: No epidural abscess or fluid collection is visualized. C2-C3: No significant disc bulge or herniation. No severe spinal canal stenosis. No significant neural foraminal narrowing. C3-C4: No significant disc bulge or herniation. No severe spinal canal stenosis. No significant neural foraminal narrowing. C4-C5: No significant disc bulge or herniation. No severe spinal canal stenosis. No significant neural foraminal narrowing. C5-C6: There is diffuse disc bulging present. Superimposed on this there is a left-sided subarticular focal disc protrusion measuring 6 mm AP and 12 mm transverse which compresses the left ventral cord and severely narrows the spinal canal. The left neural foramina is moderately narrowed and the right neural foramina is mildly narrowed. C6-C7: diffuse disc bulging is present without significant stenosis of the spinal canal. Patent neural foramina. C7-T1: No significant disc bulge or herniation. No severe spinal canal stenosis. No significant neural foraminal narrowing. Soft tissues: Fluid collection in the retropharyngeal space extending from the C2 to the C5 level is similar to the comparison CTA. The collection measures 0.8 cm maximum AP dimension spanning a length of 7.8 cm. There is again some minimal rim enhancement on MRI of the collection. Notably on the comparison CTA there are calcifications inferior to the anterior arch of C1 which suggest calcific tendinitis of the longus coli muscle. Vasculature: Expected flow voids in the vertebral arteries. MR/MR cervical spine wo/w [id number] IMPRESSION: 1. Retropharyngeal fluid collection extending from C2-C5 is again present. Given findings on the comparison CTA this is favored to be related to calcific tendinitis of the longus coli muscle. Recommend clinical correlation to exclude infection which would appear similar. No epidural abscess or fluid collection is seen. 2. Degenerative disc disease with severe stenosis of the spinal canal at C5-C6 with disc material compressing the left ventral cord without associated cord signal abnormality.
[2023-09-05 16:09] VITALS: RESP 18; O2SAT 97
[2023-09-05] MEDS: HYDROmorphone 1 mg/mL INJ 1 mL IVP (16:09)
[2023-09-05] MEDS: sodium chloride 0.9% 1,000 ML 999 ML IV (16:09)
[2023-09-05] MEDS: ondansetron 2 mg/ML SDV 2 mL 4 MG IVP (16:13)
--- NOTE | 2023-09-05 16:48 | PC.NURSE ---
pt in MRI [id number]
[2023-09-05] MEDS: gadobenate dimeglumine 20 mL vial IV (16:49)
[2023-09-05 17:57] VITALS: PULSE 52; RESP 16; O2SAT 98
[2023-09-05 18:44] VITALS: BP 149/72; RESP 16
--- NOTE | 2023-09-06 08:03 | DCPLANNER ---
Message sent to ortho for follow [id number] with orthopedic/spine surgery as discussed this week
== END 2023-09-05 18:45 | disposition home or self-care (01) ==
PROVIDERS: Physician Assistant; Emergency Provider Physician Assistant; PCP Nurse Practitioner Family
DX: M50.30 Other cervical disc degeneration, unspecified cervical region (principal); M48.02 Spinal stenosis, cervical region
CPT/HCPCS: 70496; 70498; 72156; 80053; 85025; 86140; 96374; 96375; 99285; A9577; J1170; J2405; J7030; Q9967

== ENCOUNTER → 2023-09-12 14:09 | Outpatient (BNVA) | payer OTHER, SELFPAY | PROVIDERS: PCP Nurse Practitioner Family; Visit Provider Orthopaedic Surgery | DX: M54.2 Cervicalgia (principal) | CPT/HCPCS: 72050 ==